=== PATIENT | female | born 1965 | race Caucasian/White ===

== ENCOUNTER 2020-07-14 16:10 | Outpatient (REF) | payer MEDICARE, SELFPAY | END 2020-07-14 16:11 | disposition home or self-care (01) | LOC: HO.HAP 16:10 | PROVIDERS: PCP Hospitalist; Referring Provider Hospitalist; Visit Provider Hospitalist | DX: Z46.1 Encounter for fitting and adjustment of hearing aid (principal) | CPT/HCPCS: V5266 ==

== ENCOUNTER 2020-07-20 15:26 | Outpatient (REF) | payer MEDICARE, SELFPAY | END 2020-07-20 15:27 | disposition home or self-care (01) | LOC: HO.HAP 15:26 | PROVIDERS: PCP Hospitalist; Referring Provider Hospitalist; Visit Provider Hospitalist | DX: Z46.1 Encounter for fitting and adjustment of hearing aid (principal); H90.3 Sensorineural hearing loss, bilateral | CPT/HCPCS: 92592; 99499 ==

== ENCOUNTER 2020-08-03 14:33 | Outpatient (REF) | payer MEDICARE, SELFPAY ==
--- NOTE | 2020-08-03 14:39 | MM_ITS ---
EXAMINATION: MM SCREENING DIGITAL BREAST TOMOSYNTHESIS, BILATERAL CLINICAL INFORMATION: Screening. Asymptomatic. Status post reduction mammoplasty 04/23/2019. The lifetime risk of breast cancer based on the Tyrer-Cuzick Model is 11%. COMPARISON: Mammography: 07/29/2019, 07/23/2018, 07/11/2017 TECHNIQUE: Digital breast tomosynthesis is performed in both the craniocaudal and mediolateral oblique views along with computer-aided detection (CAD). Synthesized 2D images are generated from the tomosynthesis. FINDINGS: There are scattered areas of fibroglandular density (ACR BI-RADS breast composition Category b). There is minor scarring consistent with the reduction mammoplasty again seen. Again, there is some smooth nodularity bilateral posterior 6:00 breasts along the scars. There is no significant mass or architectural abnormality or abnormal calcifications. No significant changes. The axilla are unremarkable. MM/MM tomosynthesis screening BI IMPRESSION: No significant changes from prior postoperative exam. ASSESSMENT: BI-RADS 2: Benign RECOMMENDATION: Routine annual mammography screening. This patient's information was entered into a reminder system with a target due date for their next mammogram.
== END 2020-08-03 14:34 | disposition home or self-care (01) ==
LOC: HO.MAMMO 14:33
PROVIDERS: Visit Provider Hospitalist
DX: Z12.31 Encounter for screening mammogram for malignant neoplasm of breast (principal)
CPT/HCPCS: 77063; 77067

== ENCOUNTER 2020-08-18 14:03 | Outpatient (REF) | payer MEDICARE, SELFPAY | END 2020-08-18 14:04 | disposition home or self-care (01) | LOC: HO.HAP 14:03 | PROVIDERS: Visit Provider Hospitalist | DX: Z13.89 Encounter for screening for other disorder (principal) ==

== ENCOUNTER 2020-08-27 16:45 | Outpatient (REF) | payer MEDICARE, SELFPAY | END 2020-08-27 16:46 | disposition home or self-care (01) | LOC: HO.HAP 16:45 | PROVIDERS: Visit Provider Hospitalist | DX: Z13.89 Encounter for screening for other disorder (principal) ==

== ENCOUNTER 2021-07-03 14:26 | Inpatient (IN) | payer MEDICARE, SELFPAY ==
--- NOTE | ~2021-07-03 | XR_ITS ---
EXAMINATION: XR KNEE, LEFT CLINICAL INFORMATION: Left knee pain COMPARISON: None TECHNIQUE: Four views of the left knee. FINDINGS: There is a soft tissue ossification along the lateral femoral condyle from old injury. No fracture or joint effusion. Alignment is anatomic. Joint spaces are well maintained. No abnormal soft tissue calcification. XR/XR knee LT 2V IMPRESSION: No acute fracture or dislocation. Soft tissue calcification along the lateral femoral condyle likely old injury.
--- NOTE | ~2021-07-03 | FL_ITS ---
EXAMINATION: XR FLUOROSCOPY WITH IMAGES CLINICAL INFORMATION: Left ankle fracture COMPARISON: Previous x-ray 07/03/2021 TECHNIQUE: Fluoroscopy performed by Dr. Harley Villanueva. Fluoroscopy time: 0.2 minutes DAP: 0.016 mgy/sq m Images: 4 FINDINGS: Images demonstrate 2 screws transfixing the medial malleolar fracture, a plate and screws transfixing the fibular shaft fracture and stabilization hardware across the distal tibia and fibula through the interosseous membrane. There is improved anatomic alignment. FL/FL guidance in OR IMPRESSION: Fluoroscopic guidance for ORIF of left ankle fracture.
--- NOTE | ~2021-07-03 | XR_ITS ---
EXAMINATION: XR ANKLE, LEFT CLINICAL INFORMATION: Left ankle injury. Pain and swelling in the left ankle. COMPARISON: None TECHNIQUE: AP, lateral, and mortise views of the left ankle. FINDINGS: There is intra-articular fracture through the distal left fibular metaphysis with mild lateral displacement of the distal fragment. There is a transverse displaced fracture through the medial malleolus. There is partial medial subluxation of the tibia in relation to the talar dome with widened medial tibiotalar space. Significant soft tissue swelling is noted over the ankle. No evidence of soft tissue air. Inferior and posterior calcaneal spurs. XR/XR ankle LT min 3V IMPRESSION: Displaced left bimalleolar fractures with ankle mortise instability and deformity.
[2021-07-03 14:40] VITALS: BP 158/87; PULSE 82; PULSE 88; RESP 16; TEMP 36.8; O2SAT 96; O2SAT 99; BMI 38.6
--- NOTE | 2021-07-03 14:57 | ED.LOWEXIN ---
HPI - Extremity Injury (Lower) General Chief Complaint: Extremity Injury, Lower Stated Complaint: FALL W/ANKLE INJURY/PAIN Time Seen by Provider: 07/03/21 14:57 History of Present Illness HPI Narrative: Patient complains of left ankle pain and swelling after she twisted it and fell while entering house and tripping on a carpet, there is no other injury no neck pain no headache no back pain, she did not hit her head Related Data Allergies Allergy/AdvReac Type Severity Reaction Status Date / Time amoxicillin [From AUGMENTIN] Allergy Unknown UNKNOWN Unverified 04/30/20 16:28 azithromycin [AZITHROMYCIN] Allergy Unknown UNKNOWN Unverified 04/30/20 16:28 clarithromycin [From BIAXIN] Allergy Unknown UNKNOWN Unverified 04/30/20 16:28 clavulanic acid Allergy Unknown UNKNOWN Unverified 04/30/20 16:28 [From AUGMENTIN] doxycycline [DOXYCYCLINE] Allergy Unknown UNKNOWN Unverified 04/30/20 16:28 lidocaine [LIDOCAINE] Allergy Unknown UNKNOWN Unverified 04/30/20 16:28 sulfamethoxazole Allergy Unknown UNKNOWN Unverified 04/30/20 16:28 [From BACTRIM] trimethoprim [From BACTRIM] Allergy Unknown UNKNOWN Unverified 04/30/20 16:28 Review of Systems Review of Systems: Positive for left ankle pain Negatives are no fever no chills no dizziness no weakness no fainting no feeling faint no headache no neck pain no numbness weakness or tingling no chest pain no shortness of breath no abdominal pain no other extremity pain or injury Yes all other systems are reviewed and are negative PMFSH Past Medical History Source: nursing notes reviewed Medical History (Updated 07/03/21 @ 17:52 by RITCHIE Artis) Diabetes FH: cholecystectomy GERD (gastroesophageal reflux disease) HTN (hypertension) Polymyositis Surgical History History of carpal tunnel surgery History of cholecystectomy History of gastric surgery Status post breast reduction Social History Social History Advance Directives: No Advance Directives Information Provided: Yes Patient : No Physical Exam Vital Signs: Vital Signs: Last Vital Signs Temp 98.2 F 07/03/21 14:40 Pulse 88 07/03/21 14:40 Resp 16 07/03/21 14:40 BP 158/87 H 07/03/21 14:40 Pulse Ox 99 07/03/21 14:40 Body Mass Index 38.6 General appearance no acute distress Head is normocephalic atraumatic Neck is supple nontender Respiratory no acute distress Chest wall nontender Lungs clear to auscultation bilateral Abdomen soft nontender Extremities there is full range of motion in the right lower extremity and both upper extremities The left lower leg has tenderness and swelling both medial and lateral of the left ankle, there is ecchymosis but the skin is intact, motor and sensation are intact distal, the knee has full range of motion without any tenderness and the distal foot is nontender Course Course Course Narrative: Patient has a history polymyositis which leaves her with week arms and weak legs and normally ambulates with a cane, she is not able to use crutches to be nonweightbearing and her home will not accommodate a wheelchair as their steps and tight hallways X-ray did show bimalleolar fracture with widening of the mortise Case was discussed with orthopedic physician assistant tucker who advised that surgery cannot take place till Monday Case was discussed with hospitalist and patient who could not function with nonweightbearing and has stairs at home so could not use a wheelchair was admitted pending Orthopedic surgery Discharge Plan Discharge Clinical Impression: Ankle fracture Patient Disposition: Admitted As Inpatient
--- NOTE | 2021-07-03 17:32 | P.HPHOSP_ITS ---
History of Present Illness Date of Service: 07/03/21 <RITCHIE Bañuelos - Last Filed: 07/03/21 17:51> Attending physician on admission: Bakari Chaves <RITCHIE Bañuelos - Last Filed: 07/03/21 17:51> Chief Complaint: Leg pain <RITCHIE Bañuelos - Last Filed: 07/03/21 17:51> This is a 55-year-old female with history of polymyositis who presents to the emergency department with pain in her left leg. She states that she tripped over her her door mat and fell. She denies any dizziness prior to her fall. She denies loss of consciousness and she did not her head. She was brought into the emergency department by ambulance and workup in the emergency department revealed a displaced left by malleolar fracture with ankle mortise instability and deformity. Due to her polymyositis she has difficulty ambulating at baseline and usually uses a cane. With unstable fracture she is unable to bear weight on her left leg and therefore is unable to use her cane. Due to inability to ambulate and pain, she will be admitted to the medical service with plan for orthopedic consultation. <RITCHIE Bañuelos - Last Filed: 07/03/21 17:51> Review of Systems Review of Systems: Yes all other systems are reviewed and are negative <RITCHIE Bañuelos - Last Filed: 07/03/21 17:51> Constitutional: Constitutional: Denies chills and Denies fever(s) <RITCHIE Bañuelos - Last Filed: 07/03/21 17:51> Cardiovascular: Cardiovascular: Denies chest pain <RITCHIE Bañuelos Last Filed: 07/03/21 17:51> Respiratory: Respiratory: Denies cough <RITCHIE Bañuelos Last Filed: 07/03/21 17:51> Gastrointestinal: Gastrointestinal: Denies abdominal pain <RITCHIE Castro - Last Filed: 07/03/21 17:51> [facility] Medical History: Medical History (Updated 07/03/21 @ 17:52 by RITCHIE Artis) Diabetes FH: cholecystectomy GERD (gastroesophageal reflux disease) HTN (hypertension) Polymyositis <RITCHIE Bañuelos - Last Filed: 07/03/21 17:51> Functional capacity: uses cane/walker <RITCHIE Bañuelos - Last Filed: 07/03/21 17:51> Surgical History: Surgical History History of carpal tunnel surgery History of cholecystectomy History of gastric surgery Status post breast reduction <RITCHIE Bañuelos - Last Filed: 07/03/21 17:51> Social History: Social History Household Members: Significant Other Housing: Apartment Do you presently have visiting nurse or other home services: No Patient Tobacco Use Status: Never used Tobacco Smoked in Last 30 Days: No e-Cigarette/Vaping Use: Never Used Patient Given Instructions on How to Stop Smoking: No Second Hand Smoke Exposure: No Use of substances other than those prescribed or required for medical reasons: No Currently Displaying Signs/Symptoms of Drug Intoxication Withdrawal: No Have you been hit, kicked, punched, or otherwise hurt by someone within the past year? If so, by whom?: No Do you feel safe in your current relationship?: Yes Is there a partner from a previous relationship who is making you feel unsafe now?: No Are you made to feel afraid or neglected: No Advance Directives: No Advance Directives Information Provided: Yes Advance Directives on File: Yes Do you have thoughts of harming others: None Do you have a plan to hurt others: No Plan Recently lost weight without trying: No Eating poorly because of decreased appetite: No Nutrition Risks: No Nutritional Risk Patient : No : No Poor oral hygiene: No <RITCHIE Bañuelos - Last Filed: 07/03/21 17:51> Meds Allergies/Adverse reactions: Allergies Allergy/AdvReac Type Severity Reaction Status Date / Time amoxicillin [From AUGMENTIN] Allergy Unknown UNKNOWN Unverified 04/30/20 16:28 azithromycin [AZITHROMYCIN] Allergy Unknown UNKNOWN Unverified 04/30/20 16:28 clarithromycin [From BIAXIN] Allergy Unknown UNKNOWN Unverified 04/30/20 16:28 clavulanic acid Allergy Unknown UNKNOWN Unverified 04/30/20 16:28 [From AUGMENTIN] doxycycline [DOXYCYCLINE] Allergy Unknown UNKNOWN Unverified 04/30/20 16:28 lidocaine [LIDOCAINE] Allergy Unknown UNKNOWN Unverified 04/30/20 16:28 sulfamethoxazole Allergy Unknown UNKNOWN Unverified 04/30/20 16:28 [From BACTRIM] trimethoprim [From BACTRIM] Allergy Unknown UNKNOWN Unverified 04/30/20 16:28 <RITCHIE Bañuelos - Last Filed: 07/03/21 17:51> Active Medications: Current Medications Pharmacy Consult (Consult Rx Perform Med Rec) 1 each MISCELLANE ONCE PRN PRN Reason: Consult order <RITCHIE Bañuelos - Last Filed: 07/03/21 17:51> Home medications: Home Medications Medication Instructions Recorded Confirmed Last Taken Type calcium citrate 950 mg PO DAILY 07/03/21 07/03/21 07/03/21 08:00 History glipizide 5 mg tablet 1 tab PO DAILY 07/03/21 07/03/21 07/02/21 21:00 History liraglutide 0.6 mg/0.1 mL (18 mg/3 mg SUBCUT 07/03/21 07/03/21 08:00 History mL) subcutaneous pen injector (PlayEarthtoza 3-Vinicius) losartan 50 mg tablet 1 tab PO DAILY 07/03/21 07/03/21 07/02/21 21:00 History magnesium oxide 500 mg tablet 1 tab PO DAILY 07/03/21 07/03/21 07/03/21 08:00 History multivitamin 07/03/21 07/03/21 History omeprazole 40 mg capsule,delayed 1 cap PO DAILY 07/03/21 07/03/21 07/03/21 08:00 History release <RITCHIE Bañuelos - Last Filed: 07/03/21 17:51> Physical Exam Vital Signs and Narrative: Vital Signs: Last Vital Signs Temp 98.2 F 07/03/21 14:40 Pulse 88 07/03/21 14:40 Resp 16 07/03/21 14:40 BP 158/87 H 07/03/21 14:40 Pulse Ox 99 07/03/21 14:40 Body Mass Index 38.6 <RITCHIE Bañuelos - Last Filed: 07/03/21 17:51> Const: General: healthy appearing, alert and awake <RITCHIE Bañuelos - Last Filed: 07/03/21 17:51> Nutritional Appearance: overweight <RITCHIE Bañuelos - Last Filed: 07/03/21 17:51> Orientation/consciousness: patient oriented x3 <RITCHIE Bañuelos - Last Filed: 07/03/21 17:51> HENMT: Head: Yes normocephalic and Yes atraumatic <RITCHIE Bañuelos - Last Filed: 07/03/21 17:51> Eyes: Sclerae: sclerae normal <RITCHIE Bañuelos - Last Filed: 07/03/21 17:51> Resp: Effort & Inspection: normal respiratory effort and no respiratory distress <RITCHIE Bañuelos - Last Filed: 07/03/21 17:51> Cardio: Rate: regular rate <RITCHIE Bañuelos - Last Filed: 07/03/21 17:51> Rhythm: regular rhythm <RITCHIE Bañuelos - Last Filed: 07/03/21 17:51> GI: Palpation (GI): Soft to palpation and nontender <RITCHIE Bañuelos - Last Filed: 07/03/21 17:51> Neuro: General: patient oriented x3 <RITCHIE Bañuelos - Last Filed: 07/03/21 17:51> Cranial nerves: Yes CN's II-XII intact bilaterally and Yes Bilaterally intact EOM present <RITCHIE Bañuelos - Last Filed: 07/03/21 17:51> Extrem: Other: left leg being placed in splint <RITCHIE Bañuelos - Last Filed: 07/03/21 17:51> Results Imaging Radiologist's Impressions: Impressions Ankle X-Ray 07/03/21 15:01 IMPRESSION: Displaced left bimalleolar fractures with ankle mortise instability and deformity. <RITCHIE Bañuelos Last Filed: 07/03/21 17:51> Assessment and Plan (1) Closed left ankle fracture: Status: Acute <RITCHIE Bañuelos Last Filed: 07/03/21 17:51> This is a 55-year-old female with polymyositis, diabetes, hypertension who presents to the emergency department after mechanical fall found to have left bimalleolar fracture admitted for intractable pain and inability to ambulate Left bimalleolar fracture management per orthopedic team pain management Nonweightbearing on left leg Diabetes hold victoza, glipizide -SSI, POCs, ADA diet HTN continue losartan when med rec has been completed follow blood pressure closely gerd continue omeprazole dvt ppx - lovenox code status - full code <RITCHIE Bañuelos - Last Filed: 07/03/21 17:51> Quality Stroke Does the patient have a stroke diagnosis?: No <RITCHIE Bañuelos - Last Filed: 07/03/21 17:51> VTE Prior VTE?: No <RITCHIE Bañuelos - Last Filed: 07/03/21 17:51> VTE Risk Level:: Medical - moderate - high <RITCHIE Bañuelos - Last Filed: 07/03/21 17:51> VTE Device Contraindication: Treatment Not Indicated <RITCHIE Bañuelos - Last Filed: 07/03/21 17:51> VTE Drug Contraindication: N/A - Med Ordered <RITCHIE Bañuelos - Last Filed: 07/03/21 17:51>
[2021-07-03] MEDS: Enoxaparin Sodium 40 MG/0.4 ML SYRINGE SUBCUT (19:32)
[2021-07-03] MEDS: Acetaminophen 325 MG TABLET 650 MG PO (19:43)
--- NOTE | 2021-07-03 20:09 | PC.NURSE ---
PT REFUSING IV STATES THERE IS NO MEDICAL REASON FOR ME TO GET THE IV AT THIS TIME. PT STATES I HAVE TERRIBLE VEINS AND DONT WANT AND IV NOW.
[2021-07-03 20:12] LABS: COVID-19 Test Negative (Negative); IDNOW Serial# 9DD0AD1C
[2021-07-03 23:05] LABS: Glucose, Whole Blood 196 mg/dL (60-115)
[2021-07-03] MEDS: traMADoL HCL 50 MG TABLET PO (23:43)
[2021-07-04] VITALS (7 sets, daily range): BP systolic 138–158; BP diastolic 64–85; PULSE 68–89; RESP 18–20; TEMP 37–37.4; O2SAT 96–98; BMI 39.2
[2021-07-04] MEDS: oxyCODONE HCl Immed Release 5 MG TABLET PO (04:02)
[2021-07-04 07:29] LABS: Glucose, Whole Blood 123 mg/dL (60-115)
[2021-07-04] MEDS: traMADoL HCL 50 MG TABLET PO ×2 (09:04→16:58)
[2021-07-04] MEDS: glipiZIDE 5 MG TABLET PO (09:04)
--- NOTE | 2021-07-04 09:58 | HO.PM.IMPN ---
Subjective Subjective Date of Service: 07/04/21 Interval History: Being followed for left ankle fracture with intractable pain complaining of stabbing pain left ankle unable to sleep well last night, refusing diabetic diet and insulin coverage. Review of Systems General no headache no dizziness no fever chills. CVS no chest pain, no palpitation. Respiratory no cough ,no sob Gastrointestinal no nausea, no vomiting, no abdominal pain Review of Systems: Yes all other systems are reviewed and are negative Physical Exam Vital Signs: Vital Signs: Last Vital Signs Temp 98.8 F 07/04/21 07:23 Pulse 84 07/04/21 07:23 Resp 20 07/04/21 07:23 BP 150/85 H 07/04/21 07:23 Pulse Ox 96 07/04/21 07:23 Body Mass Index 39.2 General awake alert x3in no acute distress. Neck supple, no JVD. CVS regular rate rhythm, Respiratory lungs clear to auscultation, no respiratory distress, no wheeze, no rhonchi. Gastrointestinal abdomen soft, nontender, bowel sounds audible Extremities right leg no edema. Left foot in cast Neuro nonfocal Skin no rash Objective Data Active Medications Acetaminophen (Acetaminophen 325 Mg Tablet) 650 mg PO Q6H PRN PRN Reason: Pain, Mild (Pain Scale 1-3) Last Admin: 07/03/21 19:43 Dose: 650 mg Documented by: ARASH Enoxaparin Sodium (Enoxaparin Sodium 40 Mg/0.4 Ml Syringe) 40 mg SUBCUT Q24H [facility] Last Admin: 07/03/21 19:32 Dose: 40 mg Documented by: ARASH Glipizide (Glipizide 5 Mg Tablet) 5 mg PO DAILY [facility] Last Admin: 07/04/21 09:04 Dose: 5 mg Documented by: RADHA Losartan Potassium (Losartan Potassium 50 Mg Tablet) 50 mg PO DAILY [facility]; Protocol Morphine Sulfate (Morphine Sulfate 4 Mg/Ml Cartridge) 4 mg IVPUSH Q4H PRN; Protocol PRN Reason: Pain, Severe (Pain Scale 7-10) Omeprazole (Omeprazole 40 Mg Capsule.Dr) 40 mg PO DAILY@0630 [facility] Last Admin: 07/04/21 06:26 Dose: Not Given Documented by: BRANDY Non-Admin Reason: Patient Asleep Ondansetron HCl (Ondansetron Hcl 4 Mg/2 Ml Vial) 4 mg IVPUSH Q8H PRN PRN Reason: Nausea and Vomiting Oxycodone HCl (Oxycodone Hcl Immed Release 5 Mg Tablet) 5 mg PO Q6H PRN PRN Reason: Pain, Severe (Pain Scale 7-10) Last Admin: 07/04/21 04:02 Dose: 5 mg Documented by: BRANDY Pharmacy Consult (Consult Rx Perform Med Rec) 1 each MISCELLANE ONCE PRN PRN Reason: Consult order Sodium Chloride (0.9 % Sodium Chloride Flush 3 Ml Syringe) 3 ml IVFLUSH QSHIFT [facility] Last Admin: 07/04/21 09:08 Dose: Not Given Documented by: RADHA Non-Admin Reason: No Access Tramadol HCl (Tramadol Hcl 50 Mg Tablet) 50 mg PO Q6H PRN PRN Reason: Pain, Severe (Pain Scale 7-10) Last Admin: 07/04/21 09:04 Dose: 50 mg Documented by: RADHA Labs Labs: Laboratory Results - last 24 hr 07/03/21 07/03/21 07/04/21 19:49 22:56 07:22 POC Glucose 196 H 123 H COVID-19 ([place]) Negative COVID-19 Clin Com See Note Assessment and Plan (1) Ankle fracture: Status: Acute (2) Intractable pain: Status: Acute Assessment and Plan: 55-year-old female with polymyositis, diabetes, hypertension who presents to the emergency department after mechanical fall found to have left bimalleolar fracture admitted for intractable pain and inability to ambulate Intractable left ankle pain due to Left bimalleolar fracture management per orthopedic team Continue pain management with oxycodone and Ultram, prn iv morphine Nonweightbearing on left leg Diabetes type 2 Stable blood sugars hold victoza Continue glipizide, patient refusing insulin and diabetic diet Follow POCs HTN continue losartan 50 mg daily follow blood pressure closely gerd continue omeprazole Obesity , recommended low-calorie diet exercise and weight loss since contributing to diabetes and hypertension. dvt ppx - lovenox code status - full code Quality Stroke Does the patient have a stroke diagnosis?: No VTE Prior VTE?: No VTE Risk Level:: Medical - moderate - high VTE Device Contraindication: Treatment Not Indicated VTE Drug Contraindication: N/A - Med Ordered
--- NOTE | 2021-07-04 10:35 | MHC.CM.PN ---
CM MET WITH PT WHO REPORTS SHE LIVES WITH HER S/O. SHE REPORTS SHE IS INDEPENDENT WITH SELF CARE AND HER DAUGHTER WORKS HER [employer]RAW[employer] TO PROVIDE HOUSEKEEPING SERVICES. PT REPORTS SHE USUALLY USES A TREKKING POLE TO AMBULATE BUT HAD BEEN FEELING STRONGER SO WAS NOT USING IT AT THE TIME OF THE FALL. PT REPORTS SHE HAS HAD ALL THREE OF THE COVID-19 VACCINES (MODERNA). SHE RECEIVED THE BOOSTER SHOT THIS PAST MONDAY. PT COMPLETED A NEW HCP TODAY NAMING HER DAUGHTER, LISHA, HER AGENT. [facility] DELIVERED PT FEELS SHE WILL LIKELY NEED REHAB. SHE IS REQUESTING REFERRALS TO [facility] AND [facility]. REFERRALS PLACED.
[2021-07-04 11:03] LABS: Glucose, Whole Blood 164 mg/dL (60-115)
--- NOTE | 2021-07-04 11:11 | PHA.MEDREC ---
Pharmacy Consult ? Medication Reconciliation Pharmacy has completed the medication reconciliation. PT TAKES ALL HER MEDS AT BEDTIME EXCEPT VICTOZA AND GLIPIZIDE IN AM DOES NOT WANT MAGNESIUM CITRATE O THE LIST IF WE CAN'T GIVE HER THE CITRATE. PT'S DAUGHTER TO BRING IN RXS FOR VICTOZA AND CALCIUM CITRATE
--- NOTE | 2021-07-04 11:56 | P.CONOP_ITS ---
History of Present Illness HPI Consult date: 07/04/21 Chief complaint: Intractable pain/left ankle fracture Narrative: 55 yo female who presented to the ED s/p fall . She has PMH significant for polymyositis, she uses a cane at baseline for ambulation . She is NIDDM. She states she when she walks she feels as though her legs are too heavy to lift, as she was walking she had difficulty lifting her leg, which got caught on a mat and she tripped and fell. She twisted the ankle and had di fficulty with weight bearing and ambulation which prompted her to be seen in the ED. On exam she had a notable deformity and xrays showed a bimalleolar ankle fracture with disruption of the mortise. She was admitted to the medical service and orthopedics was consulted for surgical planning. Review of Systems Review of Systems: Yes all other systems are reviewed and are negative [facility] Past Medical History Medical History (Updated 07/04/21 @ 10:02 by Bakari Chaves MD) Diabetes FH: cholecystectomy GERD (gastroesophageal reflux disease) HTN (hypertension) Polymyositis Functional capacity: uses cane/walker Surgical History Surgical History History of carpal tunnel surgery History of cholecystectomy History of gastric surgery Status post breast reduction Social History Social History Household Members: Significant Other Housing: Apartment Do you presently have visiting nurse or other home services: No Patient Tobacco Use Status: Never used Tobacco Smoked in Last 30 Days: No e-Cigarette/Vaping Use: Never Used Patient Given Instructions on How to Stop Smoking: No Second Hand Smoke Exposure: No Use of substances other than those prescribed or required for medical reasons: No Currently Displaying Signs/Symptoms of Drug Intoxication Withdrawal: No Have you been hit, kicked, punched, or otherwise hurt by someone within the past year? If so, by whom?: No Do you feel safe in your current relationship?: Yes Is there a partner from a previous relationship who is making you feel unsafe now?: No Are you made to feel afraid or neglected: No Advance Directives: No Advance Directives Information Provided: Yes Advance Directives on File: Yes Do you have thoughts of harming others: None Do you have a plan to hurt others: No Plan Recently lost weight without trying: No Eating poorly because of decreased appetite: No Nutrition Risks: No Nutritional Risk Patient : No : No Poor oral hygiene: No service: No Current occupational status: unemployed Meds Allergies Allergy/AdvReac Type Severity Reaction Status Date / Time amoxicillin [From AUGMENTIN] Allergy Unknown UNKNOWN Unverified 04/30/20 16:28 azithromycin [AZITHROMYCIN] Allergy Unknown UNKNOWN Unverified 04/30/20 16:28 clarithromycin [From BIAXIN] Allergy Unknown UNKNOWN Unverified 04/30/20 16:28 clavulanic acid Allergy Unknown UNKNOWN Unverified 04/30/20 16:28 [From AUGMENTIN] doxycycline [DOXYCYCLINE] Allergy Unknown UNKNOWN Unverified 04/30/20 16:28 lidocaine [LIDOCAINE] Allergy Unknown UNKNOWN Unverified 04/30/20 16:28 sulfamethoxazole Allergy Unknown UNKNOWN Unverified 04/30/20 16:28 [From BACTRIM] trimethoprim [From BACTRIM] Allergy Unknown UNKNOWN Unverified 04/30/20 16:28 Active Medications: Current Medications Acetaminophen (Acetaminophen 325 Mg Tablet) 650 mg PO Q6H PRN PRN Reason: Pain, Mild (Pain Scale 1-3) Last Admin: 07/03/21 19:43 Dose: 650 mg Documented by: Enoxaparin Sodium (Enoxaparin Sodium 40 Mg/0.4 Ml Syringe) 40 mg SUBCUT Q24H [facility] Last Admin: 07/03/21 19:32 Dose: 40 mg Documented by: Glipizide (Glipizide 5 Mg Tablet) 5 mg PO DAILY [facility] Last Admin: 07/04/21 09:04 Dose: 5 mg Documented by: Losartan Potassium (Losartan Potassium 50 Mg Tablet) 50 mg PO BEDTIME [facility]; Protocol Magnesium Oxide (Magnesium Oxide 400 Mg Tablet) 1 mg PO DAILY [facility] Morphine Sulfate (Morphine Sulfate 4 Mg/Ml Cartridge) 4 mg IVPUSH Q4H PRN; Protocol PRN Reason: Pain, Severe (Pain Scale 7-10) Multivitamins/Vitamin C (Multivitamin Tablet) 1 tab PO DAILY [facility] Omeprazole (Omeprazole 40 Mg Capsule.Dr) 40 mg PO BEDTIME [facility] Ondansetron HCl (Ondansetron Hcl 4 Mg/2 Ml Vial) 4 mg IVPUSH Q8H PRN PRN Reason: Nausea and Vomiting Oxycodone HCl (Oxycodone Hcl Immed Release 5 Mg Tablet) 5 mg PO Q6H PRN PRN Reason: Pain, Severe (Pain Scale 7-10) Last Admin: 07/04/21 04:02 Dose: 5 mg Documented by: Pharmacy Consult (Consult Rx Perform Med Rec) 1 each MISCELLANE ONCE PRN PRN Reason: Consult order Sodium Chloride (0.9 % Sodium Chloride Flush 3 Ml Syringe) 3 ml IVFLUSH QSHIFT [facility] Last Admin: 07/04/21 09:08 Dose: Not Given Documented by: Tramadol HCl (Tramadol Hcl 50 Mg Tablet) 50 mg PO Q6H PRN PRN Reason: Pain, Severe (Pain Scale 7-10) Last Admin: 07/04/21 09:04 Dose: 50 mg Documented by: Home Medications Medication Instructions Recorded Confirmed Last Taken Type glipizide 5 mg tablet 1 tab PO DAILY 07/03/21 07/03/21 07/02/21 21:00 History liraglutide 0.6 mg/0.1 mL (18 mg/3 1.8 mg SUBCUT DAILY 07/03/21 07/04/21 07/03/21 08:00 History mL) subcutaneous pen injector (Victoza 3-Vinicius) losartan 50 mg tablet 1 tab PO BEDTIME 07/03/21 07/04/21 07/02/21 21:00 History omeprazole 40 mg capsule,delayed 1 cap PO BEDTIME 07/03/21 07/04/21 07/03/21 08:00 History release calcium citrate 200 mg (950 mg) 2 tab PO BEDTIME 07/04/21 07/04/21 Unknown History tablet multivitamin 1 tab PO BEDTIME 07/04/21 07/04/21 Unknown History Physical Exam Vital Signs: Vital Signs: Last Vital Signs Temp 98.8 F 07/04/21 07:23 Pulse 84 07/04/21 11:13 Resp 20 07/04/21 07:23 BP 150/85 H 07/04/21 11:13 Pulse Ox 96 07/04/21 07:23 Body Mass Index 39.2 Const: General: cooperative, healthy appearing, comfortable and no acute distress Extrem: Other: Left ankle Diffuse swelling over the ankle with mild bruising. Mild tenderness over the medial and lateral malleolus. Pulses and sensation intact. Calf supple non tender. Results Labs Labs: Abnormal lab results 07/03/21 07/04/21 07/04/21 Range/Units 22:56 07:22 10:55 POC Glucose 196 H 123 H 164 H (60-115) mg/dL All other labs normal. Assessment and Plan (1) Closed left ankle fracture: Status: Acute I discussed the case with Dr Villanueva and explained the extent of the injury to the patient and options available which include surgical intervention. I explained the procedure in detail along with the length of recovery and rehab course. I explained the risk, benefits and alternatives. Risk including, but not limited to infection, blood clots, bleeding, non union or malunion and nerve/tissue damage to surrounding areas. I answered all their questions and with their understanding they have consented to move forward with Operative Fixation of the left ankle. Due to the amount of swelling and the risk for skin breakdown, we do need to wait until the swelling subsides over the next 24-48 hours. We will continue to re-eval for skin integrity. Procedures Date of Service Date of Service: 07/04/21
--- NOTE | 2021-07-04 11:56 | PM.EVENT ---
Event Note Date of Service: 07/04/21 Event Note: 55 yo female with left ankle bima fracture -pmh of polymyositis, NIDDM -continue to observe for swelling control and skin integrty -plan for OR monday
[2021-07-04 16:33] LABS: Glucose, Whole Blood 186 mg/dL (60-115)
[2021-07-04 20:28] LABS: Glucose, Whole Blood 233 mg/dL (60-115)
[2021-07-04] MEDS: Enoxaparin Sodium 40 MG/0.4 ML SYRINGE SUBCUT (21:22)
[2021-07-04] MEDS: Losartan Potassium 50 MG TABLET PO (21:23)
[2021-07-04] MEDS: Omeprazole 40 MG CAPSULE.DR PO (21:25)
[2021-07-05] MEDS: oxyCODONE HCl Immed Release 5 MG TABLET PO ×2 (00:16→23:59)
[2021-07-05 07:15] LABS: Glucose, Whole Blood 149 mg/dL (60-115)
[2021-07-05 07:41] VITALS: BP 127/75; PULSE 80; RESP 18; TEMP 36.4; O2SAT 95
[2021-07-05] MEDS: Multivitamin TABLET 1 TAB PO (08:39)
[2021-07-05] MEDS: glipiZIDE 5 MG TABLET PO (08:43)
[2021-07-05] MEDS: traMADoL HCL 50 MG TABLET PO ×2 (08:45→18:02)
[2021-07-05 08:46] LABS: Hematocrit 36.5 % (37.0-47.0); Mean Corpuscular HGB Conc 32.9 g/dl (31.0-35.0); Mean Corpuscular Hemoglobin 30.3 pg (27.0-33.0); Mean Corpuscular Volume 92.2 fL (80.0-98.0); Mean Platelet Volume 9.9 fL (9.4-12.3); Platelet Count 209 X10*3/uL (160-400); Red Blood Count 3.96 X10*6/uL (4.20-5.50); Red Cell Distribution Width 13.7 % (11.0-16.0); White Blood Count 5.1 X10*3/uL (4.8-10.8)
[2021-07-05 08:59] LABS: Anion Gap 13 (12-20); Blood Urea Nitrogen 13 mg/dL (9-16); Calcium 9.1 mg/dL (8.4-10.2); Carbon Dioxide 27 mmol/L (22-29); Chloride 105 mmol/L (96-108); Creatinine Clr Calc Pharmacy 142.7; Estimated Glomerular Filt Rate > 60; Glucose Random 179 mg/dL (60-115); Potassium 3.8 mmol/L (3.3-5.1); Sodium 141 mmol/L (135-145)
[2021-07-05 11:15] LABS: Glucose, Whole Blood 145 mg/dL (60-115)
--- NOTE | 2021-07-05 11:39 | HO.PM.IMPN ---
Subjective Subjective Date of Service: 07/05/21 Interval History: seen and examined this AM with her RNs bedside pt reports pain in foot but otherwise no complaints she has not allowed labs to be drawn, but finally did this AM she still refuses IV and states that she will have it inserted during the time of surgery Review of Systems negative except HPI Physical Exam Vital Signs: Vital Signs: Last Vital Signs Temp 97.5 F 07/05/21 07:41 Pulse 80 07/05/21 07:41 Resp 18 07/05/21 07:41 BP 127/75 07/05/21 07:41 Pulse Ox 95 07/05/21 07:41 Body Mass Index 39.2 Const: Other: ? General awake alert x3in no acute distress.? Neck? supple, no JVD. CVS? regular rate rhythm, Respiratory lungs clear to auscultation, no respiratory distress, no wheeze, no rhonchi. Gastrointestinal abdomen soft, nontender, bowel sounds audible Extremities right leg no edema.? Left foot in cast Neuro nonfocal Skin no rash Objective Data Active Medications Acetaminophen (Acetaminophen 325 Mg Tablet) 650 mg PO Q6H PRN PRN Reason: Pain, Mild (Pain Scale 1-3) Last Admin: 07/03/21 19:43 Dose: 650 mg Documented by: ARASH Enoxaparin Sodium (Enoxaparin Sodium 40 Mg/0.4 Ml Syringe) 40 mg SUBCUT Q24H [facility] Last Admin: 07/04/21 21:22 Dose: 40 mg Documented by: TALIA Glipizide (Glipizide 5 Mg Tablet) 5 mg PO DAILY [facility] Last Admin: 07/05/21 08:43 Dose: 5 mg Documented by: RADHA Losartan Potassium (Losartan Potassium 50 Mg Tablet) 50 mg PO BEDTIME [facility]; Protocol Last Admin: 07/04/21 21:23 Dose: 50 mg Documented by: TALIA Morphine Sulfate (Morphine Sulfate 4 Mg/Ml Cartridge) 4 mg IVPUSH Q4H PRN; Protocol PRN Reason: Pain, Severe (Pain Scale 7-10) Multivitamins/Vitamin C (Multivitamin Tablet) 1 tab PO DAILY [facility] Last Admin: 07/05/21 08:39 Dose: 1 tab Documented by: RADHA Non-Formulary Medication (Liraglutide [Victoza 3-Vinicius]) 1.8 mg SUBCUT DAILY [facility] Last Admin: 07/05/21 08:39 Dose: 1.8 mg Documented by: RADHA Non-Formulary Medication (Calcium Citrate) 2 tab PO BEDTIME [facility] Last Admin: 07/04/21 21:26 Dose: 2 tab Documented by: TALIA Omeprazole (Omeprazole 40 Mg Capsule.Dr) 40 mg PO BEDTIME [facility] Last Admin: 07/04/21 21:25 Dose: 40 mg Documented by: TALIA Ondansetron HCl (Ondansetron Hcl 4 Mg/2 Ml Vial) 4 mg IVPUSH Q8H PRN PRN Reason: Nausea and Vomiting Oxycodone HCl (Oxycodone Hcl Immed Release 5 Mg Tablet) 5 mg PO Q6H PRN PRN Reason: Pain, Severe (Pain Scale 7-10) Last Admin: 07/05/21 00:16 Dose: 5 mg Documented by: TALIA Pharmacy Consult (Consult Rx Perform Med Rec) 1 each MISCELLANE ONCE PRN PRN Reason: Consult order Sodium Chloride (0.9 % Sodium Chloride Flush 3 Ml Syringe) 3 ml IVFLUSH QSHIFT [facility] Last Admin: 07/05/21 08:49 Dose: Not Given Documented by: RADHA Non-Admin Reason: NPO Tramadol HCl (Tramadol Hcl 50 Mg Tablet) 50 mg PO Q6H PRN PRN Reason: Pain, Severe (Pain Scale 7-10) Last Admin: 07/05/21 08:45 Dose: 50 mg Documented by: RADHA Labs CBC & Chem 7: 07/05/21 08:36 07/05/21 08:36 Labs: Laboratory Results - last 24 hr 07/04/21 07/04/21 07/05/21 16:20 20:19 07:06 MCV MCH MCHC RDW Plt Count MPV Absolute Nucleated RBC Nucleated RBC % (auto) Anion Gap Estim Creat Clear Calc Estimated GFR POC Glucose 186 H 233 H 149 H Random Glucose Calcium 07/05/21 07/05/21 07/05/21 08:36 08:36 11:01 MCV 92.2 MCH 30.3 MCHC 32.9 RDW 13.7 Plt Count 209 MPV 9.9 Absolute Nucleated RBC 0.000 Nucleated RBC % (auto) 0.0 Anion Gap 13 Estim Creat Clear Calc 142.7 Estimated GFR > 60 POC Glucose 145 H Random Glucose 179 H Calcium 9.1 Assessment and Plan (1) Intractable pain: Status: Acute (2) Ankle fracture: Status: Acute Assessment and Plan: 55-year-old female with polymyositis, diabetes, hypertension who presents to the emergency department after mechanical fall found to have left bimalleolar fracture admitted for intractable pain and inability to ambulate Intractable left ankle pain due to Left bimalleolar fracture plan for operative repair tomorrow Continue pain management with oxycodone and Ultram, prn iv morphine Non-weight bearing on left leg Diabetes type 2 intermittently elevated POC -- pt refusing subcut. insulin POC, sliding scale check a1c HTN continue losartan 50 mg daily follow blood pressure closely gerd continue omeprazole Obesity recommended low-calorie diet exercise and weight loss since contributing to diabetes and hypertension Polymyositis chronic outpatient f/u with her doctors Full Code DVT pptx, Lovenox Dispo -- anticipate that she will need STR post surgery Quality Stroke Does the patient have a stroke diagnosis?: No VTE Prior VTE?: No VTE Risk Level:: Medical - moderate - high VTE Device Contraindication: Treatment Not Indicated VTE Drug Contraindication: N/A - Med Ordered
--- NOTE | 2021-07-05 11:59 | MHC.CM.PN ---
per rounds pt to have ankle surgery monday possible dc wed
[2021-07-05 12:11] LABS: Estimated Average Glucose 146 mg/dL; Hemoglobin A1c % 6.7 %
[2021-07-05 15:13] VITALS: BP 131/67; PULSE 81; RESP 20; TEMP 36.1; O2SAT 98
[2021-07-05 16:18] LABS: Glucose, Whole Blood 171 mg/dL (60-115)
[2021-07-05 20:17] LABS: Glucose, Whole Blood 194 mg/dL (60-115)
[2021-07-05] MEDS: Omeprazole 40 MG CAPSULE.DR PO (20:40)
[2021-07-05] MEDS: Enoxaparin Sodium 40 MG/0.4 ML SYRINGE SUBCUT (20:41)
[2021-07-05] MEDS: Losartan Potassium 50 MG TABLET PO (20:41)
[2021-07-05 23:10] VITALS: BP 176/90; PULSE 69; RESP 18; TEMP 36.9; O2SAT 98
[2021-07-05 23:36] VITALS: BP 149/64
[2021-07-06] VITALS (19 sets, daily range): BP systolic 109–166; BP diastolic 43–77; PULSE 63–97; RESP 14–18; TEMP 36.6–37.3; O2SAT 93–98
--- NOTE | 2021-07-06 06:25 | PC.NURSE ---
pt refusing iv until procedure, mds and [employer]PECT[employer] PREFLIGHT aware. will report to oncoming RN
[2021-07-06 07:17] LABS: Glucose, Whole Blood 116 mg/dL (60-115)
--- NOTE | 2021-07-06 08:45 | MHC.SHP ---
Pre-Procedural Eval Section A Date of Service: 07/06/21 The patient is an INPATIENT: Yes Changes since office visit: Yes Patient answered all questions; No Cold of Flu in the past 2 weeks, No New Medical Problems and No Changes in Medication The History & Physical has been completed within 30 days and I have reviewed it.: Yes Section B Chief Complaint: Intractable pain/left ankle fracture Allergies: Allergies Allergy/AdvReac Type Severity Reaction Status Date / Time amoxicillin [From AUGMENTIN] Allergy Mild Rash Verified 07/06/21 08:36 azithromycin [AZITHROMYCIN] Allergy Mild Rash Verified 07/06/21 08:36 clarithromycin [From BIAXIN] Allergy Mild Rash Verified 07/06/21 08:36 clavulanic acid Allergy Mild Rash Verified 07/06/21 08:36 [From AUGMENTIN] doxycycline [DOXYCYCLINE] Allergy Mild Rash Verified 07/06/21 08:36 lidocaine [LIDOCAINE] Allergy Mild Rash Verified 07/06/21 08:36 sulfamethoxazole Allergy Mild Rash Verified 07/06/21 08:36 [From BACTRIM] trimethoprim [From BACTRIM] Allergy Mild Rash Verified 07/06/21 08:36 Plan I have reviewed the history and physical and performed a pertinent physical examination on my patient. No changes have occurred unless specified.
--- NOTE | 2021-07-06 09:25 | P.CONAN_ITS ---
HPI - Anesthesia Eval Consult details Narrative: [age] female presenting for ORIF of ankle fracture. History of allergy to local anesthetics. Patient reports a localized rash extending to her elbows following injection of local anesthetics for her carpal tunnel release procedures bilaterally. Unclear if this was due to lidocaine or bupivacaine. She has had a labor epidural in the past without problems. Given history of hives and rashes to other medications and possibly local anesthetics, plan to defer a nerve block for today's procedure PMFSH Active Problems Active Problems: All Active Problems (Updated 07/04/21 @ 10:02 by Bakari Chaves MD) Intractable pain (Acute) Ankle fracture (Acute) Closed left ankle fracture (Acute) Past Medical History Medical History Diabetes FH: cholecystectomy GERD (gastroesophageal reflux disease) HTN (hypertension) Polymyositis Functional capacity: uses cane/walker Family History Family history of problems with anesthesia: No Surgical History Surgical History History of carpal tunnel surgery History of cholecystectomy History of gastric surgery Status post breast reduction History of Problems with Anesthesia: Yes (Excessive sleepiness in PACU) Social History Social History Household Members: Significant Other Housing: Apartment Do you presently have visiting nurse or other home services: No Patient Tobacco Use Status: Never used Tobacco Smoked in Last 30 Days: No e-Cigarette/Vaping Use: Never Used Patient Given Instructions on How to Stop Smoking: No Second Hand Smoke Exposure: No Use of substances other than those prescribed or required for medical reasons: No Currently Displaying Signs/Symptoms of Drug Intoxication Withdrawal: No Have you been hit, kicked, punched, or otherwise hurt by someone within the past year? If so, by whom?: No Do you feel safe in your current relationship?: Yes Is there a partner from a previous relationship who is making you feel unsafe now?: No Are you made to feel afraid or neglected: No Are you DNR?: No Advance Directives: No Advance Directives Information Provided: No (declined) Advance Directives on File: No Do you have thoughts of harming others: None Do you have a plan to hurt others: No Plan Recently lost weight without trying: No Eating poorly because of decreased appetite: No Nutrition Risks: No Nutritional Risk Patient : No : No Poor oral hygiene: No service: No Current occupational status: unemployed Meds Allergies Allergy/AdvReac Type Severity Reaction Status Date / Time amoxicillin [From AUGMENTIN] Allergy Mild Rash Verified 07/06/21 08:36 azithromycin [AZITHROMYCIN] Allergy Mild Rash Verified 07/06/21 08:36 clarithromycin [From BIAXIN] Allergy Mild Rash Verified 07/06/21 08:36 clavulanic acid Allergy Mild Rash Verified 07/06/21 08:36 [From AUGMENTIN] doxycycline [DOXYCYCLINE] Allergy Mild Rash Verified 07/06/21 08:36 lidocaine [LIDOCAINE] Allergy Mild Rash Verified 07/06/21 08:36 sulfamethoxazole Allergy Mild Rash Verified 07/06/21 08:36 [From BACTRIM] trimethoprim [From BACTRIM] Allergy Mild Rash Verified 07/06/21 08:36 Active Medications: Current Medications Acetaminophen (Acetaminophen 325 Mg Tablet) 650 mg PO Q6H PRN PRN Reason: Pain, Mild (Pain Scale 1-3) Last Admin: 07/03/21 19:43 Dose: 650 mg Documented by: Enoxaparin Sodium (Enoxaparin Sodium 40 Mg/0.4 Ml Syringe) 40 mg SUBCUT Q24H [facility] Last Admin: 07/05/21 20:41 Dose: 40 mg Documented by: Glipizide (Glipizide 5 Mg Tablet) 5 mg PO DAILY [facility] Last Admin: 07/06/21 08:04 Dose: Not Given Documented by: Cefazolin Sodium/Dextrose (Ancef) 2 gm in 50 mls @ 100 mls/hr IV PREOP [facility] Stop: 07/06/21 23:00 Losartan Potassium (Losartan Potassium 50 Mg Tablet) 50 mg PO BEDTIME [facility]; Protocol Last Admin: 07/05/21 20:41 Dose: 50 mg Documented by: Morphine Sulfate (Morphine Sulfate 4 Mg/Ml Cartridge) 4 mg IVPUSH Q4H PRN; Protocol PRN Reason: Pain, Severe (Pain Scale 7-10) Multivitamins/Vitamin C (Multivitamin Tablet) 1 tab PO DAILY [facility] Last Admin: 07/06/21 08:05 Dose: Not Given Documented by: Non-Formulary Medication (Liraglutide [Victoza 3-Vinicius]) 1.8 mg SUBCUT DAILY [facility] Last Admin: 07/05/21 08:39 Dose: 1.8 mg Documented by: Non-Formulary Medication (Calcium Citrate) 2 tab PO BEDTIME [facility] Last Admin: 07/05/21 20:42 Dose: 2 tab Documented by: Omeprazole (Omeprazole 40 Mg Capsule.Dr) 40 mg PO BEDTIME [facility] Last Admin: 07/05/21 20:40 Dose: 40 mg Documented by: Ondansetron HCl (Ondansetron Hcl 4 Mg/2 Ml Vial) 4 mg IVPUSH Q8H PRN PRN Reason: Nausea and Vomiting Oxycodone HCl (Oxycodone Hcl Immed Release 5 Mg Tablet) 5 mg PO Q6H PRN PRN Reason: Pain, Severe (Pain Scale 7-10) Last Admin: 07/05/21 23:59 Dose: 5 mg Documented by: Pharmacy Consult (Consult Rx Perform Med Rec) 1 each MISCELLANE ONCE PRN PRN Reason: Consult order Sodium Chloride (0.9 % Sodium Chloride Flush 3 Ml Syringe) 3 ml IVFLUSH QSHIFT [facility] Last Admin: 07/06/21 08:04 Dose: Not Given Documented by: Tramadol HCl (Tramadol Hcl 50 Mg Tablet) 50 mg PO Q6H PRN PRN Reason: Pain, Severe (Pain Scale 7-10) Last Admin: 07/05/21 18:02 Dose: 50 mg Documented by: Home Medications Medication Instructions Recorded Confirmed Last Taken Type glipizide 5 mg tablet 1 tab PO DAILY 07/03/21 07/03/21 07/02/21 21:00 History liraglutide 0.6 mg/0.1 mL (18 mg/3 1.8 mg SUBCUT DAILY 07/03/21 07/04/21 07/03/21 08:00 History mL) subcutaneous pen injector (Victoza 3-Vinicius) losartan 50 mg tablet 1 tab PO BEDTIME 07/03/21 07/04/21 07/02/21 21:00 History omeprazole 40 mg capsule,delayed 1 cap PO BEDTIME 07/03/21 07/04/21 07/03/21 08:00 History release calcium citrate 200 mg (950 mg) 2 tab PO BEDTIME 07/04/21 07/04/21 Unknown History tablet multivitamin 1 tab PO BEDTIME 07/04/21 07/04/21 Unknown History Exam Exam Date and Time: July 06, 2021 0925 Height,Weight and Vital Signs: Height 5 ft 4 in Weight 228 lb 9.91 oz Last Vital Signs Temp 98.6 F 07/06/21 07:58 Pulse 80 07/06/21 07:58 Resp 16 07/06/21 07:58 BP 143/63 H 07/06/21 07:58 Pulse Ox 96 07/06/21 07:58 Pertinent Lab Results Pertinent Lab Results: Laboratory Tests 07/03/21 07/03/21 07/04/21 19:49 22:56 07:22 WBC RBC Hgb Hct MCV MCH MCHC RDW Plt Count MPV Absolute Nucleated RBC Nucleated RBC % (auto) Sodium Potassium Chloride Carbon Dioxide Anion Gap BUN Creatinine Estim Creat Clear Calc Estimated GFR POC Glucose 196 H 123 H Random Glucose Estimat Average Glucose Hemoglobin A1c % Calcium COVID-19 ([place]) Negative COVID-19 Clin Com See Note 07/04/21 07/04/21 07/04/21 10:55 16:20 20:19 WBC RBC Hgb Hct MCV MCH MCHC RDW Plt Count MPV Absolute Nucleated RBC Nucleated RBC % (auto) Sodium Potassium Chloride Carbon Dioxide Anion Gap BUN Creatinine Estim Creat Clear Calc Estimated GFR POC Glucose 164 H 186 H 233 H Random Glucose Estimat Average Glucose Hemoglobin A1c % Calcium COVID-19 ([place]) COVID-19 [employer] Com 07/05/21 07/05/21 07/05/21 07:06 08:36 08:36 WBC 5.1 RBC 3.96 L Hgb 12.0 Hct 36.5 L MCV 92.2 MCH 30.3 MCHC 32.9 RDW 13.7 Plt Count 209 MPV 9.9 Absolute Nucleated RBC 0.000 Nucleated RBC % (auto) 0.0 Sodium 141 Potassium 3.8 Chloride 105 Carbon Dioxide 27 Anion Gap 13 BUN 13 Creatinine 0.51 Estim Creat Clear Calc 142.7 Estimated GFR > 60 POC Glucose 149 H Random Glucose 179 H Estimat Average Glucose Hemoglobin A1c % Calcium 9.1 COVID-19 ([place]) COVID-19 Clin Com 07/05/21 07/05/21 07/05/21 08:36 11:01 15:59 WBC RBC Hgb Hct MCV MCH MCHC RDW Plt Count MPV Absolute Nucleated RBC Nucleated RBC % (auto) Sodium Potassium Chloride Carbon Dioxide Anion Gap BUN Creatinine Estim Creat Clear Calc Estimated GFR POC Glucose 145 H 171 H Random Glucose Estimat Average Glucose 146 Hemoglobin A1c % 6.7 Calcium COVID-19 ([place]) COVID-19 Clin Com 07/05/21 07/06/21 20:07 07:05 WBC RBC Hgb Hct MCV MCH MCHC RDW Plt Count MPV Absolute Nucleated RBC Nucleated RBC % (auto) Sodium Potassium Chloride Carbon Dioxide Anion Gap BUN Creatinine Estim Creat Clear Calc Estimated GFR POC Glucose 194 H 116 H Random Glucose Estimat Average Glucose Hemoglobin A1c % Calcium COVID-19 ([place]) COVID-19 Clin Com Airway Mallampati Class: II TM Dist: >3cm Neck ROM: Full Loose/Missing/Broken Teeth: No Assessment and Plan Assessment Anesthesia Assessment: Anesthesia Plan Discussed and Chart Reviewed Final Anesthetic Review Family History of Problems with Anesthesia: No History of Problems with Anesthesia: Yes (Excessive sleepiness in PACU) NPO: Yes ASA Class: III Final Preanesthetic Review: No Changes in Pt Med Stat, Meds/Allgs Chart Reviewed, Consent Obtained/Reviewed and Anes Risks/Benef Reviewed Patient Risk: Intermediate Procedure Risk: Low Anesthetic Plan Anesthetic Plan: GA Disposition: Standard PACU
--- NOTE | 2021-07-06 10:53 | PM.OP ---
Brief Operative Note Date of Service: 07/06/21 Pre-op diagnosis: left ankle bimalleolar ankle fracture Post-op diagnosis: other (1) left ankle bimalleolar ankle fracture 2) syndesmosis disruption left ankle) Procedure: 1) ORIF left ankle bimalleolar fracture 2) ORIF left ankle syndesmosis Implants: Styker lateral locking plate Ambrocio 4.0 partially threaded cannulated screws 40 mm x 2 Surgeon: Harley Villanueva MD Anesthesia: GETA Was an Computer Numerical Control Grinder used for this Procedure?: No Estimated blood loss (mL): 20 Tourniquet time (min): 65 IV fluids (mL): 1,000 Pathology: none sent Condition: stable Disposition: PACU
[2021-07-06] MEDS: oxyCODONE HCl Immed Release 5 MG TABLET PO ×2 (10:59→16:51)
[2021-07-06] MEDS: HYDROmorphone HCl 0.5 MG/0.5 ML SYRINGE 0.25 MG IVPUSH ×3 (11:02→11:23)
--- NOTE | 2021-07-06 11:25 | MHC.CM.PN ---
[facility] IS FOLLOWING PT ..AWAITING PT AND OT EVAL AFTER ANKLE STABILIZATION
[2021-07-06] MEDS: Morphine Sulfate 4 MG/ML CARTRIDGE IVPUSH ×2 (13:30→23:09)
[2021-07-06 16:20] LABS: Glucose, Whole Blood 300 mg/dL (60-115)
[2021-07-06] MEDS: 0.9 % Sodium Chloride Flush 3 ML SYRINGE IVFLUSH ×2 (17:00→20:55)
[2021-07-06] MEDS: Clindamycin Phosphate/D5W 600 MG/50 ML PIGGYBACK 100 MG IV (17:00)
[2021-07-06 20:17] LABS: Glucose, Whole Blood 391 mg/dL (60-115)
[2021-07-06] MEDS: Omeprazole 40 MG CAPSULE.DR PO (20:55)
[2021-07-06] MEDS: Enoxaparin Sodium 40 MG/0.4 ML SYRINGE SUBCUT (20:55)
[2021-07-06] MEDS: Losartan Potassium 50 MG TABLET PO (20:55)
[2021-07-06 23:21] LABS: Glucose, Whole Blood 267 mg/dL (60-115)
[2021-07-07] MEDS: oxyCODONE HCl Immed Release 5 MG TABLET PO ×3 (00:46→17:48)
[2021-07-07] MEDS: glipiZIDE 5 MG TABLET PO (06:51)
[2021-07-07] MEDS: traMADoL HCL 50 MG TABLET PO ×2 (06:51→15:28)
[2021-07-07 07:38] LABS: Glucose, Whole Blood 213 mg/dL (60-115)
--- NOTE | 2021-07-07 07:56 | P.PNOP_ITS ---
Subjective Subjective Date of Service: 07/07/21 Interval history: POD1 s/p aurelio left ankle fx ORIF. Patient resting comfortably in bed. No overnight events. No additional complaints. Physical Exam Vital Signs: Vital Signs: Last Vital Signs Temp 99.2 F 07/06/21 22:58 Pulse 85 07/06/21 22:58 Resp 18 07/06/21 22:58 BP 157/72 H 07/06/21 22:58 Pulse Ox 96 07/06/21 22:58 Body Mass Index 39.2 Const: General: cooperative, healthy appearing and no acute distress Resp: Effort & Inspection: normal respiratory effort and able to speak in complete sentences Cardio: Rate: regular rate Peripheral pulses: Peripheral pulses 2+ throughout GI: Palpation (GI): Soft to palpation Skin: Lesions: no lesions Rashes: no rashes Extrem: Other: Left ankle splint is clean, dry, and intact. Patient is able to move digits. NVI. Procedures Date of Service Date of Service: 07/07/21 Progress Note: A&P Assessment and plan (1) Closed left ankle fracture: Status: Acute Assessment and Plan: Continue pain mgmnt begin PT for LT ankle ORIF - NWB Dispo planning-Pending PT eval, pain mgmnt Fall Risk Details Current Medications: Current Medications Acetaminophen (Acetaminophen 325 Mg Tablet) 650 mg PO Q6H PRN PRN Reason: Pain, Mild (Pain Scale 1-3) Last Admin: 07/03/21 19:43 Dose: 650 mg Documented by: Diphenhydramine HCl (Diphenhydramine Hcl 50 Mg/Ml Vial) 12.5 mg IVPUSH Q4H PRN PRN Reason: Rash or nausea Enoxaparin Sodium (Enoxaparin Sodium 40 Mg/0.4 Ml Syringe) 40 mg SUBCUT Q24H [facility] Last Admin: 07/06/21 20:55 Dose: 40 mg Documented by: Glipizide (Glipizide 5 Mg Tablet) 5 mg PO DAILY@0700 [facility] Last Admin: 07/07/21 06:51 Dose: 5 mg Documented by: Hydromorphone HCl (Hydromorphone Hcl 0.5 Mg/0.5 Ml Syringe) 0.25 mg IVPUSH Q5M PRN; Protocol PRN Reason: Pain, Severe (Pain Scale 7-10) Last Admin: 07/06/21 11:23 Dose: 0.25 mg Documented by: Losartan Potassium (Losartan Potassium 50 Mg Tablet) 50 mg PO BEDTIME [facility]; Protocol Last Admin: 07/06/21 20:55 Dose: 50 mg Documented by: Morphine Sulfate (Morphine Sulfate 4 Mg/Ml Cartridge) 4 mg IVPUSH Q4H PRN; Protocol PRN Reason: Pain, Severe (Pain Scale 7-10) Last Admin: 07/06/21 23:09 Dose: 4 mg Documented by: Multivitamins/Vitamin C (Multivitamin Tablet) 1 tab PO DAILY [facility] Last Admin: 07/06/21 08:05 Dose: Not Given Documented by: Non-Formulary Medication (Liraglutide [Victoza 3-Vinicius]) 1.8 mg SUBCUT DAILY [facility] Last Admin: 07/06/21 16:55 Dose: Not Given Documented by: Non-Formulary Medication (Calcium Citrate) 2 tab PO BEDTIME [facility] Last Admin: 07/06/21 20:55 Dose: 2 tab Documented by: Omeprazole (Omeprazole 40 Mg Capsule.Dr) 40 mg PO BEDTIME [facility] Last Admin: 07/06/21 20:55 Dose: 40 mg Documented by: Ondansetron HCl (Ondansetron Hcl 4 Mg/2 Ml Vial) 4 mg IVPUSH Q8H PRN PRN Reason: Nausea and Vomiting Ondansetron HCl (Ondansetron Hcl 4 Mg/2 Ml Vial) 4 mg IVPUSH ONCE PRN PRN Reason: Nausea and Vomiting Oxycodone HCl (Oxycodone Hcl Immed Release 5 Mg Tablet) 5 mg PO Q6H PRN PRN Reason: Pain, Severe (Pain Scale 7-10) Last Admin: 07/07/21 00:46 Dose: 5 mg Documented by: Pharmacy Consult (Consult Rx Perform Med Rec) 1 each MISCELLANE ONCE PRN PRN Reason: Consult order Sodium Chloride (0.9 % Sodium Chloride Flush 3 Ml Syringe) [facility] Last Admin: 07/06/21 20:55 Dose: 3 ml Documented by: Tramadol HCl (Tramadol Hcl 50 Mg Tablet) 50 mg PO Q6H PRN PRN Reason: Pain, Severe (Pain Scale 7-10) Last Admin: 07/07/21 06:51 Dose: 50 mg Documented by: Time Spent With Patient Time: Total time spent is greater than 50% in coordination of care (as documented) at patient's floor/unit and/or counseling patient: Time with patient: less than 15 minutes Quality Stroke Does the patient have a stroke diagnosis?: No VTE Prior VTE?: No VTE Risk Level:: Medical - moderate - high VTE Device Contraindication: Treatment Not Indicated VTE Drug Contraindication: N/A - Med Ordered
[2021-07-07 08:00] VITALS: BP 133/61; PULSE 74; RESP 18; TEMP 37; O2SAT 97
--- NOTE | 2021-07-07 08:05 | PC.NURSE ---
Called pharmacy to inquire about pt specific med, Victroza. Per pharmacy, medication should not have been approved. Notified Dr Evans who states that the patient can have this medication this AM, as she was given it on Monday; held yesterday. Dr Evans states that he will speak to patient this morning regarding this medication.
[2021-07-07] MEDS: Multivitamin TABLET 1 TAB PO (08:14)
[2021-07-07] MEDS: 0.9 % Sodium Chloride Flush 3 ML SYRINGE IVFLUSH (08:14)
[2021-07-07 08:29] VITALS: BP 133/61; PULSE 74; O2SAT 97
--- NOTE | 2021-07-07 08:30 | PC.NURSE ---
Pt self set and self administered Victoza
[2021-07-07] MEDS: Morphine Sulfate 4 MG/ML CARTRIDGE IVPUSH (10:20)
--- NOTE | 2021-07-07 10:33 | HO.POSTANES ---
Post Anesthesia Evaluation Post Anesthesia Evaluation Vital Signs: Vital Signs Temp Pulse Resp BP Pulse Ox 07/07/21 08:29 74 133/61 97 07/07/21 08:00 98.6 F 74 18 133/61 97 07/06/21 22:58 99.2 F 85 18 157/72 H 96 Anesthesia: General Mental Status: Awake Nausea/Vomiting: None Hydration: Adequate Anesthesia-Related Issues: No Anes. Related Issues
[2021-07-07 11:06] LABS: Glucose, Whole Blood 145 mg/dL (60-115)
[2021-07-07 11:18] VITALS: BP 117/58; PULSE 73; RESP 18; TEMP 36.8; O2SAT 96
--- NOTE | 2021-07-07 11:24 | PM.DS ---
DS: Providers Provider Date of Service: 07/07/21 Date of admission: 07/03/21 17:34 Primary care physician: Unknown Physician DS: Diagnosis Discharge Diagnosis (1) Closed left ankle fracture: Status: Acute DS: Summary Hospital Course Hospital Course: From the admission H&P: ?This is a 55-year-old female with history of polymyositis who presents to the emergency department with pain in her left leg.? She states that she tripped over her her door mat and fell.? She denies any dizziness prior to her fall.? She denies loss of consciousness and she did not her head.? She was brought into the emergency department by ambulance and workup in the emergency department revealed a displaced left by malleolar fracture with ankle mortise instability and deformity.? Due to her polymyositis she has difficulty ambulating at baseline and usually uses a cane.? With unstable fracture she is unable to bear weight on her left leg and therefore is unable to use her cane. Due to inability to ambulate and pain, she will be admitted to the medical service with plan for orthopedic consultation. Hospital Course: Patient was admitted for intractable pain secondary to bi-malleolar ankle fx. She underwent successful operative repair and now will be transferred to short term rehabilitation for further management. Her chronic conditions were fairly stable in the hospital except mild hyperglycemia which resolved on its own without insulin. Orthopedics has recommended lovenox for 4 weeks. Time Spent with Patient Time attestation: Total time spent providing and/or coordinating discharge services: Discharge coordination time: Greater than 30 minutes Quality: Stroke Does the patient have a stroke diagnosis?: No Physical Exam Vital Signs: Vital Signs: Last Vital Signs Temp 98.2 F 07/07/21 11:18 Pulse 73 07/07/21 11:18 Resp 18 07/07/21 11:18 BP 117/58 L 07/07/21 11:18 Pulse Ox 96 07/07/21 11:18 Body Mass Index 39.2 Const: Other: General - no acute distress, appears comfortable Cardiovascular - regular rate and rhythm, S1-S2 Lungs - normal respiratory effort, clear to auscultation bilaterally, no wheezing Abdomen - soft, nontender, no rebound or guarding Extremities - L splint c/d/i Neuro - awake and alert, no focal deficits DS: Data Data Completed and Pending Labs on day of discharge: Laboratory Results - last 24 hr 07/06/21 07/06/21 07/06/21 16:00 20:13 23:16 POC Glucose 300 H 391 H* 267 H 07/07/21 07/07/21 07:19 10:50 POC Glucose 213 H 145 H Discharge Plan Discharge Patient Disposition: Xfer Inpatient Rehab Fac Discharge Diagnosis: ORIF left ankle bimalleolar fracture Referrals: anjelica bedoya [Other] - 1 Week Vera Parks PA-C [Physician Learning Engineer] - 2 Weeks (2 week follow-up. The orthopedic office will reach out to make your appointment.) Physician,Melchor J [Primary Care Provider] - 1 Week Discharge Medications: New oxycodone 5 mg Tablet 5 mg PO Q6H PRN (Reason: Pain, Severe (Pain Scale 7-10)) Qty: 30 RF: 0 enoxaparin [Lovenox] 40 mg/0.4 mL syringe 40 mg subcut DAILY 28 Days Qty: 11.2 RF: 0 Continued losartan 50 mg tablet 1 tab PO BEDTIME RF: 0 omeprazole 40 mg capsule,delayed release(DR/EC) 1 cap PO BEDTIME RF: 0 glipizide 5 mg tablet 1 tab PO DAILY RF: 0 Victoza 3-Vinicius 0.6 mg/0.1 mL (18 mg/3 mL) pen injector 1.8 mg subcut DAILY RF: 0 multivitamin Tablet 1 tab PO BEDTIME RF: 0 calcium citrate 200 mg (950 mg) tablet 2 tab PO BEDTIME RF: 0 Discharge Orders: Discharge Order (Routine); Ordered 07/07/21 Ordered By: Daniel Evans Diet: advance to usual diet Activity on Discharge: As tolerated Stand Alone Forms: Patient Portal Discharge page Activity Restrictions/Additional Instructions: NWB x 6-8 weeks Keep splint clean, dry, and intact. Contact the orthopedic office if in need of a splint change No tub bath or shower-Keep dressing clean, dry and intact Follow up with orthopedics in 2 weeks Care Plan Goals: [facility] get treatment at [facility] Concerns: L ankle fracture Plan of Treatment: Get PT a rehab Assessment: see d/c summary
--- NOTE | 2021-07-07 11:41 | PM.EVENT ---
Event Note Date of Service: 07/07/21 Event Note: Progress Note S Seen and examined this AM Ankle pain improved O Vitals - last documented Gen - NAD CVS - S1S2 Lungs - clear Ext - no edema Nuero - no focal A/P 55 yo F admitted for L ankle fx - s/p ORIF stable for transfer to acute rehab when bed avilable
--- NOTE | 2021-07-07 12:04 | P.PNIM_ITS ---
Subjective Subjective Date of Service: 07/06/21 Interval History: late entry for 07/06 pt seen and examined post-op has L ankle pain otherwise complaints Review of Systems negative except hpi Physical Exam Vital Signs: Vital Signs: Last Vital Signs Temp 98.2 F 07/07/21 11:18 Pulse 73 07/07/21 11:18 Resp 18 07/07/21 11:18 BP 117/58 L 07/07/21 11:18 Pulse Ox 96 07/07/21 11:18 Body Mass Index 39.2 Const: Other: General - no acute distress, appears comfortable Cardiovascular - regular rate and rhythm, S1-S2 Lungs - normal respiratory effort, clear to auscultation bilaterally, no wheezing Abdomen - soft, nontender, no rebound or guarding Extremities - L ankle c/d/i Neuro - awake and alert, no focal deficits Objective Data Active Medications Acetaminophen (Acetaminophen 325 Mg Tablet) 650 mg PO Q6H PRN PRN Reason: Pain, Mild (Pain Scale 1-3) Last Admin: 07/03/21 19:43 Dose: 650 mg Documented by: ARASH Diphenhydramine HCl (Diphenhydramine Hcl 50 Mg/Ml Vial) 12.5 mg IVPUSH Q4H PRN PRN Reason: Rash or nausea Enoxaparin Sodium (Enoxaparin Sodium 40 Mg/0.4 Ml Syringe) 40 mg SUBCUT Q24H [facility] Last Admin: 07/06/21 20:55 Dose: 40 mg Documented by: ALANA Glipizide (Glipizide 5 Mg Tablet) 5 mg PO DAILY@0700 [facility] Last Admin: 07/07/21 06:51 Dose: 5 mg Documented by: ALANA Hydromorphone HCl (Hydromorphone Hcl 0.5 Mg/0.5 Ml Syringe) 0.25 mg IVPUSH Q5M PRN; Protocol PRN Reason: Pain, Severe (Pain Scale 7-10) Last Admin: 07/06/21 11:23 Dose: 0.25 mg Documented by: JOSÉ MIGUEL Losartan Potassium (Losartan Potassium 50 Mg Tablet) 50 mg PO BEDTIME [facility]; Protocol Last Admin: 07/06/21 20:55 Dose: 50 mg Documented by: ALANA Morphine Sulfate (Morphine Sulfate 4 Mg/Ml Cartridge) 4 mg IVPUSH Q4H PRN; Protocol PRN Reason: Pain, Severe (Pain Scale 7-10) Last Admin: 07/07/21 10:20 Dose: 4 mg Documented by: FRAN Multivitamins/Vitamin C (Multivitamin Tablet) 1 tab PO DAILY [facility] Last Admin: 07/07/21 08:14 Dose: 1 tab Documented by: FRAN Non-Formulary Medication (Liraglutide [Victoza 3-Vinicius]) 1.8 mg SUBCUT DAILY [facility] Last Admin: 07/07/21 08:14 Dose: 1.8 mg Documented by: FRAN Non-Formulary Medication (Calcium Citrate) 2 tab PO BEDTIME [facility] Last Admin: 07/06/21 20:55 Dose: 2 tab Documented by: ALANA Omeprazole (Omeprazole 40 Mg Capsule.Dr) 40 mg PO BEDTIME [facility] Last Admin: 07/06/21 20:55 Dose: 40 mg Documented by: ALANA Ondansetron HCl (Ondansetron Hcl 4 Mg/2 Ml Vial) 4 mg IVPUSH Q8H PRN PRN Reason: Nausea and Vomiting Ondansetron HCl (Ondansetron Hcl 4 Mg/2 Ml Vial) 4 mg IVPUSH ONCE PRN PRN Reason: Nausea and Vomiting Oxycodone HCl (Oxycodone Hcl Immed Release 5 Mg Tablet) 5 mg PO Q6H PRN PRN Reason: Pain, Severe (Pain Scale 7-10) Last Admin: 07/07/21 11:41 Dose: 5 mg Documented by: FRAN Pharmacy Consult (Consult Rx Perform Med Rec) 1 each MISCELLANE ONCE PRN PRN Reason: Consult order Sodium Chloride (0.9 % Sodium Chloride Flush 3 Ml Syringe) 3 ml IVFLUSH QSHIFT [facility] Last Admin: 07/07/21 08:14 Dose: 3 ml Documented by: FRAN Tramadol HCl (Tramadol Hcl 50 Mg Tablet) 50 mg PO Q6H PRN PRN Reason: Pain, Severe (Pain Scale 7-10) Last Admin: 07/07/21 06:51 Dose: 50 mg Documented by: ALANA Labs CBC & Chem 7: 07/05/21 08:36 07/05/21 08:36 Labs: Laboratory Results - last 24 hr 07/06/21 07/06/2121 16:00 20:13 23:16 POC Glucose 300 H 391 H* 267 H 07/07/21 07/07/21 07:19 10:50 POC Glucose 213 H 145 H Assessment and Plan (1) Ankle fracture: Status: Acute Assessment and Plan: 55-year-old female with polymyositis, diabetes, hypertension who presents to the emergency department after mechanical fall found to have left bimalleolar fracture admitted for intractable pain and inability to ambulate Intractable left ankle pain due to Left bimalleolar fracture s/p operative repair continue pain control pt when okay with ortho and anticpiate str Diabetes type 2 continue home meds -- pt refusing insulin HTN continue losartan 50 mg daily follow blood pressure closely gerd continue omeprazole Obesity recommended low-calorie diet exercise and weight loss since contributing to diabetes and hypertension Polymyositis chronic outpatient f/u with her doctors Full Code DVT pptx, Lovenox Dispo -- anticipate that she will need STR Quality Stroke Does the patient have a stroke diagnosis?: No VTE Prior VTE?: No VTE Risk Level:: Medical - moderate - high VTE Device Contraindication: Treatment Not Indicated VTE Drug Contraindication: N/A - Med Ordered
--- NOTE | 2021-07-07 12:11 | P.OP_ITS ---
Operative Note Operative Note Date of Service: 07/06/21 Narrative: Pre-op diagnosis: left ankle bimalleolar ankle fracture Post-op diagnosis: other (1) left ankle bimalleolar ankle fracture 2) syndesmosis disruption left ankle) Procedure: 1) ORIF left ankle bimalleolar fracture 2) ORIF left ankle syndesmosis Implants: Styker lateral locking plate Hagerman 4.0 partially threaded cannulated screws 40 mm x 2 Surgeon: Harley Villanueva MD Anesthesia: GETA Was an Clerk Of [employer] used for this Procedure?: No Estimated blood loss (mL): 20 Tourniquet time (min): 65 IV fluids (mL): 1,000 Pathology: none sent Condition: stable Disposition: PACU Procedure in detail: Patient was brought to the operating room placed supine on the operative table and prepped and draped in standard sterile fashion. A time-out was called to identify proper site, proper surgeon and proper procedure and IV antibiotics per weight were administered. I began by exsanguinating the limb a to 300 mm Hg. I then made a standard lateral incision over the fibula. Full-thickness flaps were taken down to the fibula where the oblique fracture was identified. Combination of rongeur and a curette and [place] was used to clean up the fracture and then lobster claw was used to reduce it. A 6 old lateral fibular locking plate was selected and 4 locking screws were placed proximal to the fracture and 4 distal. Her bone quality was poor. Biplanar fluoroscopy was used to confirm the appropriate position of the hardware and of the fracture reduction. I then turned my attention to the medial malleolus where a curvilinear incision was made over the distal aspect of the medial malleolus. The fracture was easily identified after to full-thickness flaps were developed and the wound was irrigated and the fracture cleaned up until I was able to reduce with sharp tenaculum. I then placed 240 mm partially-threaded cannulated cancellous screws from distal to proximal and slightly anterior to posterior in parallel across the fracture site. I had excellent reproduction of the normal anatomy. The syndesmosis was then assessed using external rotation test and I felt that there was increase of both medial and lateral clear space so the decision was made to place a tight rope syndesmotic apparatus. I used a clamp to reduce the syndesmosis and then placed a screw the tight rope using standard technique from lateral to medial. This was done through the open hole in the lateral fibular plate. The button was then flipped on medial cortex and tightened. Once I was happy with the position I retested the syndesmosis and it was stable using external rotation test. I then irrigated copiously closed with absorbable suture and skin glue and patient was placed in a sterile dressing and well- padded posterior splint. She was then extubated brought to recovery room in stable condition there were no known complications.
--- NOTE | 2021-07-07 13:21 | MHC.CM.PN ---
pt refused [facility] which had accepted her bed located at [facility] for today pending auth
[2021-07-07 14:24] LABS: COVID-19 Test Negative (Negative); IDNOW Serial# 9DD0AD1C
== END 2021-07-07 18:02 | disposition skilled nursing facility (03) | DRG 493 ==
LOC: HO.ED 15:12 → HO.EDOVER 17:48 → HO.IMC 19:31
PROVIDERS: Nurse Practitioner Family; Orthopaedic Surgery; Admitting Provider Hospitalist; Emergency Provider Emergency Medicine Emergency Medical Services; Visit Provider Family Medicine
PROC: 0QSK04Z Reposition Left Fibula with Internal Fixation Device, Open Approach (ICD-10-PCS; principal; 2021-07-06 08:50)
DX: S82.842A Displaced bimalleolar fracture of left lower leg, initial encounter for closed fracture (principal); M33.20 Polymyositis, organ involvement unspecified; W01.0XXA Fall on same level from slipping, tripping and stumbling without subsequent striking against object, initial encounter; Y93.9 Activity, unspecified; Y92.008 Other place in unspecified non-institutional (private) residence as the place of occurrence of the external cause; I10 Essential (primary) hypertension; E66.9 Obesity, unspecified; Z68.39 Body mass index [BMI] 39.0-39.9, adult; K21.9 Gastro-esophageal reflux disease without esophagitis; E11.9 Type 2 diabetes mellitus without complications; Z20.822 Contact with and (suspected) exposure to COVID-19; Z98.84 Bariatric surgery status; Z88.0 Allergy status to penicillin; Z88.2 Allergy status to sulfonamides; Z79.899 Other long term (current) drug therapy
CPT/HCPCS: 36415; 73560; 73610; 80048; 82947; 83036; 85027; 87635; 97162; 97166; 99285; C1713; J0690; J1100; J1170; J1650; J2250; J2270; J2405; J3010

== ENCOUNTER 2021-07-09 06:42 | Outpatient (REF) | payer MEDICARE, SELFPAY ==
[2021-07-09 06:47] LABS: MANUAL DIFF FLAG NO
[2021-07-09 06:58] LABS: Basophils Percent Auto 0.6 % (0-2); Eosinophils Absolute Auto 0.3 X10*3/uL (0.0-0.4); Eosinophils Percent Auto 3.8 % (0-4); Hematocrit 36.7 % (37.0-47.0); Hemoglobin 12.1 g/dl (12.0-16.0); Imm Gran Abs Auto 0.04 X10*3/uL (0.00-0.03); Imm Gran Pct Auto 0.6 % (0.0-0.4); Lymphocytes Absolute Auto 2.2 X10*3/uL (1.2-4.9); Lymphocytes Percent Auto 33.4 % (20-40); Mean Corpuscular Hemoglobin 30.6 pg (27.0-33.0); Mean Corpuscular Volume 92.9 fL (80.0-98.0); Mean Platelet Volume 9.7 fL (9.4-12.3); Monocytes Absolute Auto 0.6 X10*3/uL (0.1-1.2); Monocytes Percent Auto 9.2 % (2-11); Neutrophils Absolute Auto 3.4 x10*3/uL (2.0-8.3); Neutrophils Percent Auto 52.4 % (45-73); Platelet Count 238 X10*3/uL (160-400); Red Blood Count 3.95 X10*6/uL (4.20-5.50); Red Cell Distribution Width 13.8 % (11.0-16.0); White Blood Count 6.5 X10*3/uL (4.8-10.8)
[2021-07-09 07:28] LABS: Alanine Aminotransferase 71 U/L (0-31); Albumin Level 3.6 g/dL (3.5-5.0); Alkaline Phosphatase 205 U/L (39-117); Anion Gap 15 (12-20); Aspartate Amino Transferase 58 U/L (5-31); Bilirubin Total 1.5 mg/dL (0.0-1.0); Blood Urea Nitrogen 12 mg/dL (9-16); Calcium 9.3 mg/dL (8.4-10.2); Carbon Dioxide 28 mmol/L (22-29); Chloride 100 mmol/L (96-108); Estimated Glomerular Filt Rate > 60; Glucose Random 164 mg/dL (60-115); Potassium 4.3 mmol/L (3.3-5.1); Sodium 139 mmol/L (135-145)
== END 2021-07-09 06:43 | disposition home or self-care (01) ==
LOC: HO.MMNH1L 06:42
PROVIDERS: Visit Provider Family Medicine
DX: E03.9 Hypothyroidism, unspecified (principal); E11.9 Type 2 diabetes mellitus without complications
CPT/HCPCS: 36415; 80053; 85025

== ENCOUNTER 2021-07-12 00:52 | Outpatient (REF) | payer MEDICARE, SELFPAY ==
[2021-07-12 06:40] LABS: MANUAL DIFF FLAG NO
[2021-07-12 06:55] LABS: Basophils Percent Auto 0.4 % (0-2); Eosinophils Absolute Auto 0.3 X10*3/uL (0.0-0.4); Eosinophils Percent Auto 4.5 % (0-4); Hemoglobin 11.4 g/dl (12.0-16.0); Imm Gran Abs Auto 0.04 X10*3/uL (0.00-0.03); Imm Gran Pct Auto 0.7 % (0.0-0.4); Lymphocytes Absolute Auto 1.8 X10*3/uL (1.2-4.9); Lymphocytes Percent Auto 31.7 % (20-40); Mean Corpuscular HGB Conc 31.7 g/dl (31.0-35.0); Mean Corpuscular Hemoglobin 29.8 pg (27.0-33.0); Mean Platelet Volume 10.1 fL (9.4-12.3); Monocytes Absolute Auto 0.5 X10*3/uL (0.1-1.2); Monocytes Percent Auto 8.6 % (2-11); Neutrophils Percent Auto 54.1 % (45-73); Platelet Count 254 X10*3/uL (160-400); Red Blood Count 3.83 X10*6/uL (4.20-5.50); Red Cell Distribution Width 13.7 % (11.0-16.0); White Blood Count 5.6 X10*3/uL (4.8-10.8)
[2021-07-12 07:23] LABS: Alanine Aminotransferase 58 U/L (0-31); Albumin Level 3.5 g/dL (3.5-5.0); Alkaline Phosphatase 215 U/L (39-117); Anion Gap 15 (12-20); Aspartate Amino Transferase 38 U/L (5-31); Bilirubin Total 1.5 mg/dL (0.0-1.0); Blood Urea Nitrogen 12 mg/dL (9-16); Calcium 8.9 mg/dL (8.4-10.2); Carbon Dioxide 26 mmol/L (22-29); Chloride 103 mmol/L (96-108); Estimated Glomerular Filt Rate > 60; Glucose Random 157 mg/dL (60-115); Potassium 4.1 mmol/L (3.3-5.1); Sodium 140 mmol/L (135-145); Total Protein 5.8 g/dL (6.5-8.0)
== END 2021-07-12 00:53 | disposition home or self-care (01) ==
LOC: HO.MMNH1L 00:52
PROVIDERS: Visit Provider Family Medicine
DX: I10 Essential (primary) hypertension (principal); E11.9 Type 2 diabetes mellitus without complications
CPT/HCPCS: 36415; 80053; 85025

== ENCOUNTER 2021-07-19 00:13 | Outpatient (REF) | payer MEDICARE, SELFPAY ==
--- NOTE | ~2021-07-19 | XR_ITS ---
EXAMINATION: XR ANKLE, LEFT CLINICAL INFORMATION: Pain COMPARISON: 07/03/2021 TECHNIQUE: AP, lateral, and mortise views of the left ankle. FINDINGS: Plain screw fixation hardware along the lateral distal fibula. 2 cannulated screws transfix the medial malleolus. Additional Endobuttons secure the distal tibia and fibula. Overlying skin cipriano. Alignment of the tibial and fibular fractures is anatomic. The ankle mortise is congruent. Diffuse soft tissue swelling. Achilles and plantar heel spurs. XR/XR ankle LT min 3V IMPRESSION: Intact fixation hardware at the distal tibia and fibula with appropriate alignment. Diffuse soft tissue swelling.
== END 2021-07-19 00:14 | disposition home or self-care (01) ==
LOC: HO.MMNH1L 00:13
PROVIDERS: Visit Provider Family Medicine
DX: I10 Essential (primary) hypertension (principal); E11.9 Type 2 diabetes mellitus without complications; M25.572 Pain in left ankle and joints of left foot; Z98.890 Other specified postprocedural states; Z87.81 Personal history of (healed) traumatic fracture
CPT/HCPCS: 73610; 99212

== ENCOUNTER 2021-07-19 07:38 | Outpatient (REF) | payer MEDICARE, SELFPAY | END 2021-07-19 07:39 | disposition home or self-care (01) | LOC: HO.HOSX 07:38 | PROVIDERS: Visit Provider Physician Assistant | DX: Z13.89 Encounter for screening for other disorder (principal) ==

== ENCOUNTER → 2021-07-26 13:53 | Outpatient (BNVA) | payer MEDICARE, SELFPAY | PROVIDERS: PCP Hospitalist; Visit Provider Physician Assistant | DX: Z98.890 Other specified postprocedural states (principal); Z87.81 Personal history of (healed) traumatic fracture | CPT/HCPCS: 29405; 99212 ==

== ENCOUNTER 2021-08-16 07:06 | Outpatient (REF) | payer MEDICARE, SELFPAY ==
--- NOTE | ~2021-08-16 | XR_ITS ---
EXAMINATION: XR ANKLE, LEFT CLINICAL INFORMATION: Pain COMPARISON: Left ankle x-rays 07/19/2021 TECHNIQUE: AP, lateral, and mortise views of the left ankle. FINDINGS: Stable postsurgical changes of the ankle. Fractures of the distal tibia and fibula are again noted but demonstrate appreciable interval callus formation. The ankle mortise is well-maintained. Diffuse soft tissue swelling of the ankle persists. XR/XR ankle LT min 3V IMPRESSION: -Interval healing of distal tibia and fibula fractures. -No evidence of hardware failure.
== END 2021-08-16 07:07 | disposition home or self-care (01) ==
LOC: HO.HOSX 07:06
PROVIDERS: Visit Provider Physician Assistant
DX: M25.572 Pain in left ankle and joints of left foot (principal); I10 Essential (primary) hypertension; K21.9 Gastro-esophageal reflux disease without esophagitis; Z87.81 Personal history of (healed) traumatic fracture; Z98.890 Other specified postprocedural states; Z88.1 Allergy status to other antibiotic agents; Z88.2 Allergy status to sulfonamides; Z88.8 Allergy status to other drugs, medicaments and biological substances
CPT/HCPCS: 73610; 99212

== ENCOUNTER 2021-09-16 15:03 | Outpatient (REF) | payer MEDICARE, SELFPAY ==
--- NOTE | ~2021-09-16 | MM_ITS ---
EXAMINATION: BONE DENSITOMETRY CLINICAL INDICATION: Encounter for screening for osteoporosis. Asymptomatic menopausal state. Postmenopausal. COMPARISON: Baseline BD dated 08/28/2018. TECHNIQUE: Using a Light Chaser Animation DXA System (software version: 13.1) manufactured by [employer], dual-energy x-ray absorptiometry was performed of the lumbar spine and left hip. The images are of good technical quality. Summary results are attached. FINDINGS: AP SPINE L1-L4: Current: BMD 1.348 g/cm2, Z-score 1.3, T-score 1.4, normal, 2.6% decrease from baseline (<5% change is not significant). Baseline: BMD 1.384 g/cm2. LEFT FEMUR, NECK: Current: BMD 0.925 g/cm2, Z-score -0.4, T-score -0.8, normal. Baseline: BMD 1.041 g/cm2. LEFT FEMUR, TOTAL: Current: BMD 0.980 g/cm2, Z-score -0.2, T-score -0.2, normal, 11.1% decrease from baseline (<5% change is not significant). Baseline: BMD 1.102 g/cm2. IDENTIFIED RISK FACTORS: History of fracture, (adult). Menopause. Recurrent falls. Secondary osteoporosis, (part of stomach removed). HISTORY OF FRACTURE: Other fractures. MEDICATIONS: Calcium or multivitamin. MM/XR DEXA axial skeleton IMPRESSION: 1. DIAGNOSIS: Normal bone density based on the lowest T-score value of -0.8 in the femoral neck applying World Health Organization criteria. 2. 10-YEAR FRACTURE RISK PREDICTION, FRAX: Major osteoporotic fracture (clinical spine, forearm, hip or shoulder) 10.1%. Hip fracture 0.4%. 3. Treatment Recommendations: NOF guidelines recommend consideration for treatment in postmenopausal women and men age 50 and older presenting with the following: -A hip or vertebral (clinical or morphometric) fracture. -T-score less than or equal to -2.5 at the femoral neck or spine after appropriate evaluation to exclude secondary causes. -Low bone mass at the hip or spine and a 10-year fracture probability by FRAX of greater than or equal to 3% for hip fracture or greater than or equal to 20% for major osteoporotic fracture based on the [place] adapted WHO algorithm. 4. Other Recommendations: All treatment decisions require clinical judgment and consideration of individual patient factors, including patient preferences, comorbidities, previous drug use, risk factors not captured in the FRAX model (e.g. frailty, falls, vitamin D deficiency, increased bone turnover, interval significant decline in bone density) and possible under or overestimation of fracture risk by FRAX. FUTURE SCAN RECOMMENDATION: People with diagnosed cases of osteoporosis or at high risk for fracture should have regular bone mineral density tests. For patients eligible for Medicare, routine testing is allowed once every 2 years. The testing frequency can be increased to one year for patients who have rapidly progressing disease, those who are receiving or discontinuing medical therapy to restore bone mass, or have additional risk factors.
== END 2021-09-16 15:04 | disposition home or self-care (01) ==
LOC: HO.MAMMO 15:03
PROVIDERS: Visit Provider Hospitalist
DX: Z13.820 Encounter for screening for osteoporosis (principal); Z78.0 Asymptomatic menopausal state; Z79.899 Other long term (current) drug therapy
CPT/HCPCS: 77080

== ENCOUNTER 2021-09-20 15:11 | Outpatient (REF) | payer MEDICARE, SELFPAY ==
--- NOTE | ~2021-09-20 | MM_ITS ---
EXAMINATION: MM SCREENING DIGITAL BREAST TOMOSYNTHESIS, BILATERAL CLINICAL INFORMATION: Screening. Asymptomatic. Prior history reduction mammoplasty 04/23/2019. The lifetime risk of breast cancer based on the Tyrer-Cuzick Model is 10%. COMPARISON: Mammography: 08/03/2020, 07/29/2019, 07/23/2018 TECHNIQUE: Digital breast tomosynthesis is performed in both the craniocaudal and mediolateral oblique views along with computer-aided detection (CAD). Synthesized 2D images are generated from the tomosynthesis. FINDINGS: There are scattered areas of fibroglandular density (ACR BI-RADS breast composition Category b). There is minor bilateral scarring similar to prior exam consistent with the reduction mammoplasty. Smooth nodularity near the dermal surface posterior inferior left breast is stable. Nodularity posterior inferior right breast is decreased from prior exam. There is an oil cysts again suggested anterior 12:00 left breast. There is no significant mass or architectural abnormality or abnormal calcifications. No significant changes. MM/MM tomosynthesis screening BI IMPRESSION: No significant changes from prior exam. ASSESSMENT: BI-RADS 2: Benign RECOMMENDATION: Routine annual mammography screening. This patient's information was entered into a reminder system with a target due date for their next mammogram.
== END 2021-09-20 15:12 | disposition home or self-care (01) ==
LOC: HO.MAMMO 15:11
PROVIDERS: PCP Internal Medicine; Visit Provider Hospitalist
DX: Z12.31 Encounter for screening mammogram for malignant neoplasm of breast (principal)
CPT/HCPCS: 77063; 77067

== ENCOUNTER 2021-09-27 12:00 | Outpatient (REF) | payer MEDICARE, SELFPAY ==
--- NOTE | ~2021-09-27 | XR_ITS ---
EXAMINATION: XR ANKLE, LEFT CLINICAL INFORMATION: Fracture. COMPARISON: Previous exams most recent August 2021. TECHNIQUE: AP, lateral, and mortise views of the left ankle. FINDINGS: There are 2 screws in the medial malleolus. There is a plate and screws in the distal fibula. There is stabilization of the distal tibia and fibula. Orthopedic hardware appears unchanged. Fracture lines are no longer seen. The ankle mortise is normal. Soft tissues are normal. There are calcaneal spurs. XR/XR ankle LT min 3V IMPRESSION: ORIF of medial malleolar and distal fibular shaft fractures with continued healing.
== END 2021-09-27 12:01 | disposition home or self-care (01) ==
LOC: HO.HOSX 12:00
PROVIDERS: Visit Provider Physician Assistant
DX: M25.572 Pain in left ankle and joints of left foot (principal); Z98.890 Other specified postprocedural states; Z87.81 Personal history of (healed) traumatic fracture
CPT/HCPCS: 73610; 99212

== ENCOUNTER 2021-11-08 07:16 | Day surgery (SDC) | payer MEDICARE, SELFPAY ==
[2021-11-01 14:22] VITALS: BMI 38.2
--- NOTE | 2021-11-05 08:01 | MHC.SHP ---
Pre-Procedural Eval Section A Date of Service: 11/05/21 The patient is an INPATIENT: No Changes since office visit: No Cold of Flu in the past 2 weeks, No New Medical Problems, No Changes in Medication and No Patient answered all questions The History & Physical has been completed within 30 days and I have reviewed it.: Yes Section B Chief Complaint: Cataract Left eye Allergies: Allergies Allergy/AdvReac Type Severity Reaction Status Date / Time amoxicillin [From AUGMENTIN] Allergy Mild Rash Verified 09/27/21 15:08 azithromycin [AZITHROMYCIN] Allergy Mild Rash Verified 09/27/21 15:08 clarithromycin [From BIAXIN] Allergy Mild Rash Verified 09/27/21 15:08 clavulanic acid Allergy Mild Rash Verified 09/27/21 15:08 [From AUGMENTIN] doxycycline [DOXYCYCLINE] Allergy Mild Rash Verified 09/27/21 15:08 lidocaine [LIDOCAINE] Allergy Mild Rash Verified 09/27/21 15:08 sulfamethoxazole Allergy Mild Rash Verified 09/27/21 15:08 [From BACTRIM] trimethoprim [From BACTRIM] Allergy Mild Rash Verified 09/27/21 15:08 Plan Diagnosis/Plan: Unchanged I have reviewed the history and physical and performed a pertinent physical examination on my patient. No changes have occurred unless specified.
--- NOTE | 2021-11-05 09:49 | P.CONAN_ITS ---
Documented by User: Melanie Wright NP 11/05/21 09:51 HPI - Anesthesia Eval Consult details Narrative: 56yo F for Left Cataract Extraction IOL Insertion PCP cleared No previous cataract on record *Multiple Med Allergies* PMFSH Active Problems Active Problems: All Active Problems (Updated 11/01/21 @ 14:25 by Ruby Youngblood RN) Status post open reduction with internal fixation (ORIF) of fracture of ankle (Acute) Past Medical History Medical History Ankle fracture Closed left ankle fracture COVID-19 vaccine series completed Diabetes FH: cholecystectomy GERD (gastroesophageal reflux disease) HTN (hypertension) Polymyositis Sleep apnea Family History Family history of problems with anesthesia: No Surgical History Surgical History H/O colonoscopy History of carpal tunnel surgery History of cholecystectomy History of endometrial ablation History of gastric surgery History of open reduction and internal fixation (ORIF) procedure Hx of foot surgery Hx of myringotomy Status post breast reduction History of Problems with Anesthesia: Yes Social History Social History Household Members: Significant Other Housing: Apartment Are you a primary md do resident urgent care to a significant other at home: No Do you presently have visiting nurse or other home services: No Patient Tobacco Use Status: Former Tobacco user Quit Date: age 26 Tobacco use type: Cigarette e-Cigarette/Vaping Use: Never Used Second Hand Smoke Exposure: No Use of substances other than those prescribed or required for medical reasons: No Have you been hit, kicked, punched, or otherwise hurt by someone within the past year? If so, by whom?: No Are you DNR?: No Advance Directives: No Advance Directives Information Provided: Yes Advance Directives on File: No Recently lost weight without trying: No Eating poorly because of decreased appetite: No Nutrition Risks: No Nutritional Risk Poor oral hygiene: No (one missing tooth-has flipper ) service: No Current occupational status: unemployed Current occupation: rt handed Meds Allergies Allergy/AdvReac Type Severity Reaction Status Date / Time amoxicillin [From AUGMENTIN] Allergy Mild Rash Verified 09/27/21 15:08 azithromycin [AZITHROMYCIN] Allergy Mild Rash Verified 09/27/21 15:08 clarithromycin [From BIAXIN] Allergy Mild Rash Verified 02/14/22 15:08 clavulanic acid Allergy Mild Rash Verified 09/27/21 15:08 [From AUGMENTIN] doxycycline [DOXYCYCLINE] Allergy Mild Rash Verified 09/27/21 15:08 lidocaine [LIDOCAINE] Allergy Mild Rash Verified 09/27/21 15:08 sulfamethoxazole Allergy Mild Rash Verified 09/27/21 15:08 [From BACTRIM] trimethoprim [From BACTRIM] Allergy Mild Rash Verified 09/27/21 15:08 Home Medications Medication Instructions Recorded Confirmed Last Taken Type glipizide 5 mg tablet 1 tab PO DAILY 07/03/21 11/01/21 11/08/21 History liraglutide 0.6 mg/0.1 mL (18 mg/3 1.8 mg SUBCUT DAILY 07/03/21 11/01/21 11/08/21 History mL) subcutaneous pen injector ([employer] 3-Vinicius) losartan 50 mg tablet 1 tab PO BEDTIME 07/03/21 11/01/21 07/02/21 21:00 History omeprazole 40 mg capsule,delayed 1 cap PO BEDTIME 07/03/21 11/01/21 07/03/21 08:00 History release calcium citrate 200 mg (950 mg) 2 tab PO BEDTIME 07/04/21 11/01/21 Unknown History tablet multivitamin 1 tab PO QAM 07/04/21 11/01/21 Unknown History azathioprine 50 mg tablet 2 tab PO DAILY 11/01/21 11/01/21 Unknown History Exam Exam Date and Time: November 05, 2021 0949 Height,Weight and Vital Signs: Height 5 ft 5 in Weight 104.326 kg Pertinent Lab Results Pertinent Lab Results: Laboratory Tests 07/12/21 07/12/21 04:45 04:45 WBC 5.6 Hgb 11.4 L Hct 36.0 L Plt Count 254 Sodium 140 Potassium 4.1 Chloride 103 Carbon Dioxide 26 BUN 12 Creatinine 0.53 Assessment and Plan Assessment Anesthesia Assessment: Chart Reviewed Final Anesthetic Review Family History of Problems with Anesthesia: No History of Problems with Anesthesia: Yes Documented by User: Constance Garcia MD 11/08/21 09:00 [facility] Past Medical History Medical History Ankle fracture Closed left ankle fracture COVID-19 vaccine series completed Diabetes FH: cholecystectomy GERD (gastroesophageal reflux disease) HTN (hypertension) Polymyositis Sleep apnea Surgical History Surgical History H/O colonoscopy History of carpal tunnel surgery History of cholecystectomy History of endometrial ablation History of gastric surgery History of open reduction and internal fixation (ORIF) procedure Hx of foot surgery Hx of myringotomy Status post breast reduction Social History Social History Household Members: Significant Other Housing: Apartment Are you a primary md do resident urgent care to a significant other at home: No Do you presently have visiting nurse or other home services: No Patient Tobacco Use Status: Former Tobacco user Quit Date: age 26 Tobacco use type: Cigarette e-Cigarette/Vaping Use: Never Used Second Hand Smoke Exposure: No Use of substances other than those prescribed or required for medical reasons: No Have you been hit, kicked, punched, or otherwise hurt by someone within the past year? If so, by whom?: No Are you DNR?: No Advance Directives: No Advance Directives Information Provided: Yes Advance Directives on File: No Recently lost weight without trying: No Eating poorly because of decreased appetite: No Nutrition Risks: No Nutritional Risk Poor oral hygiene: No (one missing tooth-has flipper ) service: No Current occupational status: unemployed Current occupation: rt handed Meds Allergies Allergy/AdvReac Type Severity Reaction Status Date / Time amoxicillin [From AUGMENTIN] Allergy Mild Rash Verified 09/27/21 15:08 azithromycin [AZITHROMYCIN] Allergy Mild Rash Verified 09/27/21 15:08 clarithromycin [From BIAXIN] Allergy Mild Rash Verified 09/27/21 15:08 clavulanic acid Allergy Mild Rash Verified 09/27/21 15:08 [From AUGMENTIN] doxycycline [DOXYCYCLINE] Allergy Mild Rash Verified 09/27/21 15:08 lidocaine [LIDOCAINE] Allergy Mild Rash Verified 09/27/21 15:08 sulfamethoxazole Allergy Mild Rash Verified 09/27/21 15:08 [From BACTRIM] trimethoprim [From BACTRIM] Allergy Mild Rash Verified 09/27/21 15:08 Home Medications Medication Instructions Recorded Confirmed Last Taken Type glipizide 5 mg tablet 1 tab PO DAILY 07/03/21 11/01/21 11/08/21 History liraglutide 0.6 mg/0.1 mL (18 mg/3 1.8 mg SUBCUT DAILY 07/03/21 11/01/21 11/08/21 History mL) subcutaneous pen injector ([employer] 3-Vinicius) losartan 50 mg tablet 1 tab PO BEDTIME 07/03/21 11/01/21 07/02/21 21:00 History omeprazole 40 mg capsule,delayed 1 cap PO BEDTIME 07/03/21 11/01/21 07/03/21 08:00 History release calcium citrate 200 mg (950 mg) 2 tab PO BEDTIME 07/04/21 11/01/21 Unknown History tablet multivitamin 1 tab PO QAM 07/04/21 11/01/21 Unknown History azathioprine 50 mg tablet 2 tab PO DAILY 11/01/21 11/01/21 Unknown History Exam Airway Mallampati Class: II TM Dist: >3cm Neck ROM: Full Loose/Missing/Broken Teeth: Yes (Right lower molar area) Heart: RRR Lungs: CTA Assessment and Plan Assessment Anesthesia Assessment: Anesthesia Plan Discussed Final Anesthetic Review NPO: Yes ASA Class: III Final Preanesthetic Review: Meds/Allgs Chart Reviewed, Consent Obtained/Reviewed and Anes Risks/Benef Reviewed Patient Risk: Intermediate Procedure Risk: Low Anesthetic Plan Anesthetic Plan: MAC: Disposition: Standard PACU
[2021-11-08 07:49] VITALS: BP 157/82; PULSE 75; RESP 16; TEMP 36.8; O2SAT 99
[2021-11-08] MEDS: Tetracaine HCl/PF 0.5% Oph Sol 4 ML DROPS 1 DROP EYE-LEFT (07:59)
[2021-11-08] MEDS: Lactated Ringers 500 ML 50 ML IV (07:59)
[2021-11-08] MEDS: Tropicamide 1 % Ophth Sol 3 ML BTL 1 DROP EYE-LEFT ×3 (08:00→08:13)
[2021-11-08] MEDS: Phenylephrine HCL 2.5% Oph SoL 2 ML BOTTLE 1 DROP EYE-LEFT ×2 (08:04→08:11)
[2021-11-08 08:10] LABS: Glucose, Whole Blood 133 mg/dL (60-115)
--- NOTE | 2021-11-08 08:38 | OP_ITS ---
Ophthalmology Procedure Procedure Date of Service: 11/08/21 Ophthalmology Viscoelastic: Healon Duet Dual Pack Pro Ophthalmology Lenses: TECNIS [id number] (22.5) Procedure Notes: PREOPERATIVE DIAGNOSIS: Decreased visual acuity left eye secondary to cataract POSTOPERATIVE DIAGNOSIS: Same PROCEDURE: Left cataract extraction with intraocular lens insertion SURGEON: Mango Mccarty M.D. ANESTHESIA: Topical/MAC ESTIMATED BLOOD LOSS: None COMPLICATIONS: None After obtaining informed consent, the patient was brought to the operation room suite and placed in the supine position. After adequate sedation per anesthesia, topical drops of Tetracaine were given to the left eye. The eye was then prepped and draped in the usual sterile fashion. The operating room microscope was then positioned over the operative eye and a lid speculum placed. A paracentesis was created. Viscoelastic was then instilled into the anterior chamber. A three plane incision was then created temporally, utilizing a 2.85 mm keratome. Capsulotomy forceps were then utilized to create a circular tear capsulotomy. Hydrodissection and hydrodelineation were carried out until adequate mobilization of the nucleus occurred. Phacoemulsification was then utilized to remove the dense central nucleus followed by removal of the cortical material utilizing the automated aspiration irrigation unit. Viscoat elastic was instilled into the posterior capsular bag followed by placement of a posterior chamber intraocular lens without difficulty. The residual Viscoat elastic was then removed utilizing the automated IA machine. The wound was check and found to be watertight. The patient tolerated the procedure well and the lid speculum was removed. Intracameral injection of Vigamox 0.1 mL followed by a subtenon injection of Kenalog-40 0.2 mL were administered. The patient will be seen in the a.m. MTDD
[2021-11-08 09:09] VITALS: BP 133/81; PULSE 70; RESP 16; TEMP 36.7; O2SAT 97
== END 2021-11-08 09:20 | disposition home or self-care (01) ==
LOC: HO.SSS 07:17
PROVIDERS: PCP Internal Medicine; Visit Provider Ophthalmology
PROC: (CPT 66985; principal; 2021-11-08 08:40)
DX: H25.12 Age-related nuclear cataract, left eye (principal); H52.4 Presbyopia; I10 Essential (primary) hypertension; E11.9 Type 2 diabetes mellitus without complications; G47.33 Obstructive sleep apnea (adult) (pediatric); M33.20 Polymyositis, organ involvement unspecified; Z88.1 Allergy status to other antibiotic agents; Z87.891 Personal history of nicotine dependence; Z79.84 Long term (current) use of oral hypoglycemic drugs; Z79.899 Other long term (current) drug therapy
CPT/HCPCS: 66984; 82947; J2250; J3010; J3300; V2632

== ENCOUNTER 2021-11-22 07:38 | Day surgery (SDC) | payer OTHER, SELFPAY ==
[2021-11-01 14:31] VITALS: BMI 38.2
--- NOTE | 2021-11-18 11:38 | MHC.SHP ---
Pre-Procedural Eval Section A Date of Service: 11/18/21 The patient is an INPATIENT: No Changes since office visit: No Cold of Flu in the past 2 weeks, No New Medical Problems, No Changes in Medication and No Patient answered all questions The History & Physical has been completed within 30 days and I have reviewed it.: Yes Section B Chief Complaint: Cataract Right Eye Allergies: Allergies Allergy/AdvReac Type Severity Reaction Status Date / Time amoxicillin [From AUGMENTIN] Allergy Mild Rash Verified 09/27/21 15:08 azithromycin [AZITHROMYCIN] Allergy Mild Rash Verified 09/27/21 15:08 clarithromycin [From BIAXIN] Allergy Mild Rash Verified 09/27/21 15:08 clavulanic acid Allergy Mild Rash Verified 09/27/21 15:08 [From AUGMENTIN] doxycycline [DOXYCYCLINE] Allergy Mild Rash Verified 09/27/21 15:08 lidocaine [LIDOCAINE] Allergy Mild Rash Verified 09/27/21 15:08 sulfamethoxazole Allergy Mild Rash Verified 09/27/21 15:08 [From BACTRIM] trimethoprim [From BACTRIM] Allergy Mild Rash Verified 09/27/21 15:08 Plan Diagnosis/Plan: Unchanged I have reviewed the history and physical and performed a pertinent physical examination on my patient. No changes have occurred unless specified.
--- NOTE | 2021-11-18 15:11 | P.CONAN_ITS ---
Documented by User: Melanie Wright NP 11/18/21 15:12 HPI - Anesthesia Eval Consult details Narrative: 56yo M for Right Cataract Extraction IOL Insertion PCP cleared Left eye 11/08/21 with MAC: Fent 50, Midaz 2 *Multiple Med Allergies* PMFSH Active Problems Active Problems: All Active Problems (Updated 11/01/21 @ 14:25 by Ruby Youngblood RN) Status post open reduction with internal fixation (ORIF) of fracture of ankle (Acute) Past Medical History Medical History Ankle fracture Closed left ankle fracture COVID-19 vaccine series completed Diabetes FH: cholecystectomy GERD (gastroesophageal reflux disease) HTN (hypertension) Polymyositis Sleep apnea Family History Family history of problems with anesthesia: No Surgical History Surgical History H/O colonoscopy History of carpal tunnel surgery History of cholecystectomy History of endometrial ablation History of gastric surgery History of open reduction and internal fixation (ORIF) procedure Hx of foot surgery Hx of myringotomy Status post breast reduction History of Problems with Anesthesia: Yes Social History Social History Household Members: Significant Other Housing: Apartment Are you a primary child day care center worker to a significant other at home: No Do you presently have visiting nurse or other home services: No Patient Tobacco Use Status: Former Tobacco user Quit Date: age 26 Tobacco use type: Cigarette e-Cigarette/Vaping Use: Never Used Second Hand Smoke Exposure: No Use of substances other than those prescribed or required for medical reasons: No Have you been hit, kicked, punched, or otherwise hurt by someone within the past year? If so, by whom?: No Are you DNR?: No Advance Directives: No Advance Directives Information Provided: Yes Advance Directives on File: No Recently lost weight without trying: No Eating poorly because of decreased appetite: No Nutrition Risks: No Nutritional Risk Poor oral hygiene: No (one missing tooth-has flipper ) service: No Current occupational status: unemployed Current occupation: rt handed Meds Allergies Allergy/AdvReac Type Severity Reaction Status Date / Time amoxicillin [From AUGMENTIN] Allergy Mild Rash Verified 09/27/21 15:08 azithromycin [AZITHROMYCIN] Allergy Mild Rash Verified 09/27/21 15:08 clarithromycin [From BIAXIN] Allergy Mild Rash Verified 09/27/21 15:08 clavulanic acid Allergy Mild Rash Verified 09/27/21 15:08 [From AUGMENTIN] doxycycline [DOXYCYCLINE] Allergy Mild Rash Verified 09/27/21 15:08 lidocaine [LIDOCAINE] Allergy Mild Rash Verified 09/27/21 15:08 sulfamethoxazole Allergy Mild Rash Verified 09/27/21 15:08 [From BACTRIM] trimethoprim [From BACTRIM] Allergy Mild Rash Verified 09/27/21 15:08 Home Medications Medication Instructions Recorded Confirmed Last Taken Type glipizide 5 mg tablet 1 tab PO DAILY 07/03/21 11/01/21 11/22/21 History liraglutide 0.6 mg/0.1 mL (18 mg/3 1.8 mg SUBCUT DAILY 07/03/21 11/01/21 11/22/21 History mL) subcutaneous pen injector ([employer] 3-Vinicius) losartan 50 mg tablet 1 tab PO BEDTIME 07/03/21 11/01/21 07/02/21 21:00 History omeprazole 40 mg capsule,delayed 1 cap PO BEDTIME 07/03/21 11/01/21 07/03/21 08:00 History release calcium citrate 200 mg (950 mg) 2 tab PO BEDTIME 07/04/21 11/01/21 Unknown History tablet multivitamin 1 tab PO QAM 07/04/21 11/01/21 Unknown History azathioprine 50 mg tablet 2 tab PO DAILY 11/01/21 11/01/21 Unknown History Exam Exam Date and Time: November 18, 2021 1511 Height,Weight and Vital Signs: Height 5 ft 5 in Weight 104.326 kg Assessment and Plan Assessment Anesthesia Assessment: Chart Reviewed Final Anesthetic Review Family History of Problems with Anesthesia: No History of Problems with Anesthesia: Yes Documented by User: Gary Cotton MD 11/22/21 08:32 [facility] Past Medical History Medical History Ankle fracture Closed left ankle fracture COVID-19 vaccine series completed Diabetes FH: cholecystectomy GERD (gastroesophageal reflux disease) HTN (hypertension) Polymyositis Sleep apnea Surgical History Surgical History H/O colonoscopy History of carpal tunnel surgery History of cholecystectomy History of endometrial ablation History of gastric surgery History of open reduction and internal fixation (ORIF) procedure Hx of foot surgery Hx of myringotomy Status post breast reduction Social History Social History Household Members: Significant Other Housing: Apartment Are you a primary child day care center worker to a significant other at home: No Do you presently have visiting nurse or other home services: No Patient Tobacco Use Status: Former Tobacco user Quit Date: age 26 Tobacco use type: Cigarette e-Cigarette/Vaping Use: Never Used Second Hand Smoke Exposure: No Use of substances other than those prescribed or required for medical reasons: No Have you been hit, kicked, punched, or otherwise hurt by someone within the past year? If so, by whom?: No Are you DNR?: No Advance Directives: No Advance Directives Information Provided: Yes Advance Directives on File: No Recently lost weight without trying: No Eating poorly because of decreased appetite: No Nutrition Risks: No Nutritional Risk Poor oral hygiene: No (one missing tooth-has flipper ) service: No Current occupational status: unemployed Current occupation: rt handed Meds Allergies Allergy/AdvReac Type Severity Reaction Status Date / Time amoxicillin [From AUGMENTIN] Allergy Mild Rash Verified 09/27/21 15:08 azithromycin [AZITHROMYCIN] Allergy Mild Rash Verified 09/27/21 15:08 clarithromycin [From BIAXIN] Allergy Mild Rash Verified 09/27/21 15:08 clavulanic acid Allergy Mild Rash Verified 09/27/21 15:08 [From AUGMENTIN] doxycycline [DOXYCYCLINE] Allergy Mild Rash Verified 09/27/21 15:08 lidocaine [LIDOCAINE] Allergy Mild Rash Verified 09/27/21 15:08 sulfamethoxazole Allergy Mild Rash Verified 09/27/21 15:08 [From BACTRIM] trimethoprim [From BACTRIM] Allergy Mild Rash Verified 09/27/21 15:08 Home Medications Medication Instructions Recorded Confirmed Last Taken Type glipizide 5 mg tablet 1 tab PO DAILY 07/03/21 11/01/21 11/22/21 History liraglutide 0.6 mg/0.1 mL (18 mg/3 1.8 mg SUBCUT DAILY 07/03/21 11/01/21 11/22/21 History mL) subcutaneous pen injector ([employer] 3-Vinicius) losartan 50 mg tablet 1 tab PO BEDTIME 07/03/21 11/01/21 07/02/21 21:00 History omeprazole 40 mg capsule,delayed 1 cap PO BEDTIME 07/03/21 11/01/21 07/03/21 08:00 History release calcium citrate 200 mg (950 mg) 2 tab PO BEDTIME 07/04/21 11/01/21 Unknown History tablet multivitamin 1 tab PO QAM 07/04/21 11/01/21 Unknown History azathioprine 50 mg tablet 2 tab PO DAILY 11/01/21 11/01/21 Unknown History Exam Airway Mallampati Class: II TM Dist: >3cm Neck ROM: Full Loose/Missing/Broken Teeth: No Heart: [id number] Lungs: cta b/l Assessment and Plan Assessment Anesthesia Assessment: Anesthesia Plan Discussed Final Anesthetic Review NPO: Yes ASA Class: II Final Preanesthetic Review: No Changes in Pt Med Stat, Meds/Allgs Chart Reviewed, Consent Obtained/Reviewed and Anes Risks/Benef Reviewed Patient Risk: Intermediate Procedure Risk: Low Assessment/Block/Sedation in SS: Assess/Block/Sedation-SS Anesthetic Plan Anesthetic Plan: MAC: and Agree w/ Assess. and Plan Disposition: Standard PACU
[2021-11-22 07:56] VITALS: BP 145/61; PULSE 77; RESP 16; TEMP 36.9; O2SAT 97
[2021-11-22] MEDS: Tetracaine HCl/PF 0.5% Oph Sol 4 ML DROPS 1 DROP EYE-RIGHT (08:05)
[2021-11-22] MEDS: Tropicamide 1 % Ophth Sol 3 ML BTL 1 DROP EYE-RIGHT ×3 (08:06→08:19)
[2021-11-22] MEDS: Phenylephrine HCL 2.5% Oph SoL 2 ML BOTTLE 1 DROP EYE-RIGHT ×3 (08:08→08:23)
[2021-11-22 08:14] LABS: Glucose, Whole Blood 158 mg/dL (60-115)
[2021-11-22] MEDS: Lactated Ringers 500 ML 50 ML IV (08:19)
--- NOTE | 2021-11-22 08:35 | HO.PNOPHT ---
Ophthalmology Procedure Procedure Date of Service: 11/22/21 Ophthalmology Viscoelastic: Richa Martint Dual Pack Pro Ophthalmology Lenses: TECGAYLA [id number] (23) Procedure Notes: PREOPERATIVE DIAGNOSIS: Decreased visual acuity right eye secondary to cataract POSTOPERATIVE DIAGNOSIS: Same PROCEDURE: Right cataract extraction with intraocular lens insertion SURGEON: Mango Mccarty M.D. ANESTHESIA: Topical/MAC ESTIMATED BLOOD LOSS: None COMPLICATIONS: None After obtaining informed consent, the patient was brought to the operating room suite and placed in the supine position. After adequate sedation per anesthesia, topical drops of Tetracaine were given to the right eye. The eye was then prepped and draped in the usual sterile fashion. The operating room microscope was then positioned over the operative eye and a lid speculum placed. A paracentesis was created. Viscoelastic was then instilled into the anterior chamber. A three plane incision was then created temporally, utilizing a 2.85 mm keratome. Capsulotomy forceps were then utilized to create a circular tear capsulotomy. Hydrodissection and hydrodelineation were carried out until adequate mobilization of the nucleus occurred. Phacoemulsification was then utilized to remove the dense central nucleus followed by removal of the cortical material utilizing the automated aspiration irrigation unit. Viscoelastic was instilled into the posterior capsular bag followed by placement of a posterior chamber intraocular lens without difficulty. The residual Viscoelastic was then removed utilizing the automated IA machine. The wound was checked and found to be watertight. The patient tolerated the procedure well and the lid speculum was removed. Intracameral injection of Vigamox 0.1 mL followed by a subtenon injection of Kenalog-40 0.2 mL were administered. The patient will be seen in the a.m.
[2021-11-22 09:01] VITALS: BP 137/67; PULSE 71; RESP 18; TEMP 36.2; O2SAT 97
== END 2021-11-22 09:11 ==
LOC: HO.SSS 07:39
PROVIDERS: PCP Internal Medicine; Visit Provider Ophthalmology
PROC: (CPT 66985; principal; 2021-11-22 08:40)
DX: H25.11 Age-related nuclear cataract, right eye (principal); E11.9 Type 2 diabetes mellitus without complications; I10 Essential (primary) hypertension; Z79.84 Long term (current) use of oral hypoglycemic drugs; Z79.899 Other long term (current) drug therapy; Z88.0 Allergy status to penicillin; Z88.2 Allergy status to sulfonamides; Z88.8 Allergy status to other drugs, medicaments and biological substances
CPT/HCPCS: 66984; 82947; J2250; J3010; J3300; V2632

== ENCOUNTER 2022-06-24 12:41 | Outpatient (REF) | payer OTHER, SELFPAY ==
--- NOTE | ~2022-06-24 | XR_ITS ---
EXAMINATION: XR ANKLE, LEFT CLINICAL INFORMATION: Left ankle pain. COMPARISON: 09/27/2021. TECHNIQUE: AP, lateral, and mortise views of the left ankle. FINDINGS: Again seen are 2 screws in the medial malleolus and a plate and screw device along the distal tibia. A ghost track from a screw which passed through the stabilization plate and through the fibula and tibia is seen with the very distal end of the screw and the screw head still visible. No interval change when compared to the prior study. Degenerative changes are seen in the hindfoot unchanged from prior. Calcaneal spurs are again seen. XR/XR ankle LT min 3V IMPRESSION: No significant interval change when compared to the prior study. Postoperative changes as described above with degenerative changes in the hindfoot.
== END 2022-06-24 12:42 | disposition home or self-care (01) ==
LOC: HO.HOSX 12:41
PROVIDERS: Visit Provider Physician Assistant
DX: M25.572 Pain in left ankle and joints of left foot (principal); Z98.890 Other specified postprocedural states; Z87.81 Personal history of (healed) traumatic fracture
CPT/HCPCS: 73610; 99212

== ENCOUNTER 2022-08-26 13:18 | Outpatient (REF) | payer OTHER, SELFPAY ==
--- NOTE | ~2022-08-26 | MM_ITS ---
EXAMINATION: MM DIAGNOSTIC DIGITAL BREAST TOMOSYNTHESIS, BILATERAL. US TARGETED BREAST, LEFT CLINICAL INFORMATION: Left breast swelling and redness for 2 weeks. Status post previous breast reduction surgery. The lifetime risk of breast cancer based on the Tyrer-Cuzick Model is 9.9%. COMPARISON: Mammography: 09/20/2021 and studies dating back to 06/30/2014. TECHNIQUE: Digital breast tomosynthesis is performed in both the craniocaudal and mediolateral oblique views along with computer-aided detection (CAD). Synthesized 2-D images are generated from the tomosynthesis. Targeted left breast ultrasound. FINDINGS: There are scattered areas of fibroglandular density (ACR BI-RADS breast composition Category b). There is a stable proximal pattern of the right breast with no new abnormal dominant mass or suspicious grouping of microcalcifications. There is some fat sclerosis present from previous surgery anteriorly within the left breast. In the region of palpable abnormality about the 6 o'clock location of the deep left breast, there is an ill-defined density measuring approximately 4.2 x 3.1 cm in size. No associated microcalcifications are present. This is involving the inferior skin. ULTRASOUND: Targeted left breast ultrasound demonstrated thickening of the dermis with edematous change. There is a region of diminished density with some increased through sound transmission about the 6 o'clock location which has some circumferential hyperemia present measuring approximately 3 cm in length and 2 mm in width. No significant abscess collection to drain is identified. Results are discussed with the patient at time of visit. MM/MM tomosynthesis diagnostic BI IMPRESSION: Region of dermal thickening with edema and small amount of fluid with hyperemia consistent with an infectious/inflammatory process. Recommend clinical followup after treatment for possible infectious etiology. If the skin process does not resolve, then skin punch biopsy may be entertained. ASSESSMENT: BI-RADS 3: Probably Benign. RECOMMENDATION: 1. Patient should be managed based on the clinical impression. Decision to proceed with biopsy should be based on clinical grounds and degree of clinical concern. 2. Otherwise, routine annual screening mammography. This patient's information was entered into a reminder system with a target due date for their next mammogram.
== END 2022-08-26 13:19 | disposition home or self-care (01) ==
LOC: HO.MAMMO 13:18
PROVIDERS: PCP Internal Medicine; Visit Provider Surgery Surgical Oncology
DX: N64.89 Other specified disorders of breast (principal)
CPT/HCPCS: 76642; 77062; 77066

== ENCOUNTER 2022-09-28 16:58 | Outpatient (REF) | payer OTHER, SELFPAY ==
--- NOTE | ~2022-09-28 | XR_ITS ---
EXAMINATION: XR BILATERAL KNEES CLINICAL INFORMATION: Reason for Exam M25.561 - Pain in right knee COMPARISON: Knee radiographs 07/07/2021 TECHNIQUE: One view of the bilateral knees standing and 2 views of each knee. FINDINGS: RIGHT KNEE: No acute fracture or dislocation. Moderate degenerative changes of the knee with loss of medial compartment joint space and medial and patellofemoral compartment osteophytes. Trace suprapatellar joint effusion. Soft tissues are unremarkable. LEFT KNEE: No acute fracture or dislocation. Well corticated calcification is noted adjacent to the left medial and lateral femoral condyles may reflect sequelae of remote avulsion injury. Moderate degenerative changes of the knee with loss of medial compartment joint space and small patellofemoral and medial compartment osteophytes. No joint effusion. Soft tissues are unremarkable. XR/XR knee LT 2V IMPRESSION: * No acute osseous abnormality. * Moderate degenerative changes of the knees. Trace right suprapatellar joint effusion. * Well corticated calcification is noted adjacent to the left medial and lateral femoral condyles may reflect sequelae of remote avulsion injury.
--- NOTE | ~2022-09-28 | XR_ITS ---
EXAMINATION: XR BILATERAL KNEES CLINICAL INFORMATION: Reason for Exam M25.561 - Pain in right knee COMPARISON: Knee radiographs 07/07/2021 TECHNIQUE: One view of the bilateral knees standing and 2 views of each knee. FINDINGS: RIGHT KNEE: No acute fracture or dislocation. Moderate degenerative changes of the knee with loss of medial compartment joint space and medial and patellofemoral compartment osteophytes. Trace suprapatellar joint effusion. Soft tissues are unremarkable. LEFT KNEE: No acute fracture or dislocation. Well corticated calcification is noted adjacent to the left medial and lateral femoral condyles may reflect sequelae of remote avulsion injury. Moderate degenerative changes of the knee with loss of medial compartment joint space and small patellofemoral and medial compartment osteophytes. No joint effusion. Soft tissues are unremarkable. XR/XR knee standing BI IMPRESSION: * No acute osseous abnormality. * Moderate degenerative changes of the knees. Trace right suprapatellar joint effusion. * Well corticated calcification is noted adjacent to the left medial and lateral femoral condyles may reflect sequelae of remote avulsion injury.
--- NOTE | ~2022-09-28 | XR_ITS ---
EXAMINATION: XR BILATERAL KNEES CLINICAL INFORMATION: Reason for Exam M25.561 - Pain in right knee COMPARISON: Knee radiographs 07/07/2021 TECHNIQUE: One view of the bilateral knees standing and 2 views of each knee. FINDINGS: RIGHT KNEE: No acute fracture or dislocation. Moderate degenerative changes of the knee with loss of medial compartment joint space and medial and patellofemoral compartment osteophytes. Trace suprapatellar joint effusion. Soft tissues are unremarkable. LEFT KNEE: No acute fracture or dislocation. Well corticated calcification is noted adjacent to the left medial and lateral femoral condyles may reflect sequelae of remote avulsion injury. Moderate degenerative changes of the knee with loss of medial compartment joint space and small patellofemoral and medial compartment osteophytes. No joint effusion. Soft tissues are unremarkable. XR/XR knee RT 2V IMPRESSION: * No acute osseous abnormality. * Moderate degenerative changes of the knees. Trace right suprapatellar joint effusion. * Well corticated calcification is noted adjacent to the left medial and lateral femoral condyles may reflect sequelae of remote avulsion injury.
== END 2022-09-28 16:59 | disposition home or self-care (01) ==
LOC: HO.HOSX 16:58
PROVIDERS: Visit Provider Physician Assistant
DX: M17.0 Bilateral primary osteoarthritis of knee (principal); M33.20 Polymyositis, organ involvement unspecified
CPT/HCPCS: 73560; 73565; 99212

== ENCOUNTER 2022-10-31 13:56 | Outpatient (REF) | payer OTHER, SELFPAY ==
--- NOTE | ~2022-10-31 | MR_ITS ---
EXAMINATION: MR KNEE WITHOUT CONTRAST, LEFT CLINICAL INFORMATION: Primary osteoarthritis of the knee. COMPARISON: X-ray of the left knee September 2022 and June 2021. TECHNIQUE: MRI of the knee without contrast was performed using routine sequences on a high-field scanner. FINDINGS: MENISCI: Medial Meniscus: Intact. Lateral Meniscus: Intact. LIGAMENTS: Cruciate: Intact. Collateral: MCL: There is thickening and slight irregularity of the medial collateral ligament particularly at the femoral attachment. Findings indicative of a partial tear likely subacute. This corresponds to the area of calcification on x-ray. Lateral Ligament: Intact. EXTENSOR MECHANISM: Intact. ARTICULAR CARTILAGE/BONE: Patellofemoral Compartment: Normal. Medial Compartment: Minimal marginal osteophytes about the medial femoral condyle and minimal cartilage heterogeneity. Overall minimal arthrosis. Lateral Compartment: Normal. JOINT FLUID AND BURSAE: Mild effusion. MR/MR knee LT wo con IMPRESSION: 1. Partial tear of the medial collateral ligament, likely subacute. 2. Minimal arthrosis of the medial compartment. 3. Mild effusion.
== END 2022-10-31 13:57 | disposition home or self-care (01) ==
LOC: HO.MRI 13:56
PROVIDERS: Visit Provider Physician Assistant
DX: M17.0 Bilateral primary osteoarthritis of knee (principal)
CPT/HCPCS: 73721

== ENCOUNTER → 2022-11-10 15:34 | Outpatient (BNVA) | payer OTHER, MEDICAID, SELFPAY | PROVIDERS: Visit Provider Physician Assistant | DX: M17.12 Unilateral primary osteoarthritis, left knee (principal); M25.562 Pain in left knee | CPT/HCPCS: 99212 ==

== ENCOUNTER 2023-03-02 14:51 | Outpatient (REF) | payer SELFPAY | END 2023-03-02 14:52 | disposition home or self-care (01) | LOC: HO.HAP 14:51 | PROVIDERS: Visit Provider Internal Medicine | DX: Z46.1 Encounter for fitting and adjustment of hearing aid (principal); H90.3 Sensorineural hearing loss, bilateral | CPT/HCPCS: V5267 ==

== ENCOUNTER 2023-08-28 13:11 | Outpatient (REF) | payer OTHER, SELFPAY ==
--- NOTE | ~2023-08-28 | MM_ITS ---
EXAMINATION: MM SCREENING DIGITAL BREAST TOMOSYNTHESIS, BILATERAL CLINICAL INFORMATION: Screening. Asymptomatic. The patient is status post bilateral breast reduction. COMPARISON: Mammography: This study is compared with prior exams dating back to 2019. TECHNIQUE: Digital breast tomosynthesis is performed in both the craniocaudal and mediolateral oblique views along with computer-aided detection (CAD). Synthesized 2D images are generated from the tomosynthesis. FINDINGS: There are scattered areas of fibroglandular density (ACR BI-RADS breast composition Category b). There are no significant masses, abnormal calcifications, or other abnormalities. Post reduction changes are present. MM/MM tomosynthesis screening BI IMPRESSION: No mammographic evidence of malignancy. ASSESSMENT: BI-RADS BI-RADS 2 - Benign Findings RECOMMENDATION: Routine annual mammography screening. 1 year F/U This examination should not preclude the clinical evaluation of a suspicious palpable abnormality. This patient's information was entered into a reminder system with a target due date for their next mammogram.
== END 2023-08-28 13:12 | disposition home or self-care (01) ==
LOC: HO.MAMMO 13:11
PROVIDERS: PCP Internal Medicine; Visit Provider Internal Medicine
DX: Z12.31 Encounter for screening mammogram for malignant neoplasm of breast (principal)
CPT/HCPCS: 77063; 77067

== ENCOUNTER → 2023-08-28 13:15 | Outpatient (BNV) | payer OTHER, SELFPAY | PROVIDERS: PCP Internal Medicine; Visit Provider Radiology Diagnostic Radiology | DX: Z12.31 Encounter for screening mammogram for malignant neoplasm of breast (principal) | CPT/HCPCS: 77063; 77067 ==

== ENCOUNTER → 2024-07-12 18:00 | Outpatient (BNV) | payer OTHER, SELFPAY | PROVIDERS: Emergency Provider Emergency Medicine; PCP Internal Medicine; Visit Provider Internal Medicine | DX: R07.9 Chest pain, unspecified (principal); R00.1 Bradycardia, unspecified; R94.31 Abnormal electrocardiogram [ECG] [EKG] | CPT/HCPCS: 93010 ==

== ENCOUNTER 2024-07-12 18:01 | Emergency (ER) | payer OTHER, SELFPAY ==
--- NOTE | 2024-07-12 | ECG_ITS ---
Test Reason : CP Blood Pressure : / mmHG Vent. Rate : 059 BPM Atrial Rate : 059 BPM P-R Int : 188 ms QRS Dur : 084 ms QT Int : 452 ms P-R-T Axes : 108 -21 073 degrees QTc Int : 447 ms Sinus bradycardia Nonspecific ST and T wave abnormality Borderline ECG When compared with ECG of 24-NOV-2011 08:07, No significant change was found Referred By: Generic ED Physician Electronically Signed By:LINCOLN ALMARAZ
--- NOTE | ~2024-07-12 | XR_ITS ---
EXAMINATION: XR CHEST CLINICAL INFORMATION: CP COMPARISON: None available. TECHNIQUE: 2 views of the chest were obtained. FINDINGS: The cardiomediastinal silhouette is within normal limits. The lungs are well expanded. There is no focal consolidation, edema, or effusion. No pneumothorax. No acute osseous abnormality. Multilevel thoracic spine degeneration XR/XR chest 2V IMPRESSION: No evidence of acute pulmonary process. Electronically signed by: Emmanuel Linda MD 07/12/2024 08:16 PM [facility]
[2024-07-12 18:59] VITALS: BP 132/81; PULSE 66; RESP 16; TEMP 36.4; O2SAT 99; BMI 36.6
--- NOTE | 2024-07-12 18:59 | ED.CHESTPAIN ---
HPI - Chest Pain General Chief Complaint: Chest Pain Stated Complaint: Chest pain Time Seen by Provider: 07/12/24 19:40 Source: patient and RN notes reviewed Mode of arrival: ambulatory Limitations: no limitations History of Present Illness ED Provider: Chapito BLOCK narrative: 58 old female with past medical history significant for polymyositis, diabetes, hypertension, status post gastric sleeve presents for evaluation of chest pain. She endorses a 2 day history of midsternal chest pain that does not radiate. She describes the pain as burning. The pain is present when she is resting. The pain improves when she gets up and walks. She states that if she turns the wrong way she will feel the pain The pain is a 3/10 and constant. She reports a family history of coronary artery disease Denies any fevers, chills, shortness of breath pain The patient reports that she has had some palpitations She reports that her primary doctor has been changing her blood pressure medications. About a month ago she was put on valsartan and then 6 days ago this is switch to carvedilol The patient thinks that her blood pressure has been elevated due to this Related Data Home Medications ?Medication ?Instructions ?Recorded ?Confirmed glipizide 5 mg tablet 1 tab PO DAILY 07/03/21 11/01/21 liraglutide 0.6 mg/0.1 mL (18 mg/3 1.8 mg subcut DAILY 07/03/21 11/01/21 mL) subcutaneous pen injector (Victoza 3-Vinicius) losartan 50 mg tablet 1 tab PO BEDTIME 07/03/21 11/01/21 omeprazole 40 mg capsule,delayed 1 cap PO BEDTIME 07/03/21 11/01/21 release calcium citrate 2 tab PO BEDTIME 07/04/21 11/01/21 multivitamin 1 tab PO QAM 07/04/21 11/01/21 azathioprine 100 mg tablet 100 mg PO DAILY 06/24/22 azathioprine 50 mg tablet 50 mg PO DAILY 06/24/22 Previous Rx's ?Medication ?Instructions ?Recorded lorazepam 0.5 mg tablet 0.5 mg PO DAILY PRN anxiety #3 tabs 10/10/22 meloxicam 15 mg tablet 15 mg PO DAILY 30 days #30 tabs 11/10/22 Allergies Allergy/AdvReac Type Severity Reaction Status Date / Time amoxicillin [From AUGMENTIN] Allergy Mild Rash Verified 07/12/24 19:02 azithromycin [AZITHROMYCIN] Allergy Mild Rash Verified 07/12/24 19:02 clarithromycin [From BIAXIN] Allergy Mild Rash Verified 07/12/24 19:02 clavulanic acid Allergy Mild Rash Verified 07/12/24 19:02 [From AUGMENTIN] doxycycline [DOXYCYCLINE] Allergy Mild Rash Verified 07/12/24 19:02 lidocaine [LIDOCAINE] Allergy Mild Rash Verified 07/12/24 19:02 sulfamethoxazole Allergy Mild Rash Verified 07/12/24 19:02 [From BACTRIM] trimethoprim [From BACTRIM] Allergy Mild Rash Verified 07/12/24 19:02 Review of Systems Constitutional: Constitutional: Denies body ache(s), Denies chills, Denies fever(s), Denies frequent falls and Denies headache(s) Eyes: Eyes: Denies dry eyes and Denies floaters ENT: Denies vertigo, Denies dizziness and Denies headache(s) Cardiovascular: Cardiovascular: Reports chest pain, Denies chest pain at rest, Reports rapid heart rate, Reports lightheadedness, Reports palpitations and Denies dyspnea Respiratory: Respiratory: Denies cough and Denies dyspnea Gastrointestinal: Gastrointestinal: Denies abdominal pain, Denies nausea and Denies vomiting Musculoskeletal: Musculoskeletal: Denies back pain Integumentary/Breasts: Skin/Breast: Denies rash Neurologic: Denies vertigo, Denies dizziness, Denies frequent falls and Denies headache(s) Endocrine: Endocrine: Reports palpitations PMFSH Past Medical History Medical History Ankle fracture Closed left ankle fracture COVID-19 vaccine series completed Diabetes FH: cholecystectomy GERD (gastroesophageal reflux disease) HTN (hypertension) Polymyositis Sleep apnea Surgical History H/O colonoscopy History of carpal tunnel surgery History of cholecystectomy History of endometrial ablation History of gastric surgery History of open reduction and internal fixation (ORIF) procedure Hx of foot surgery Hx of myringotomy Status post breast reduction Social History Social History Household Members: Significant Other Housing: Apartment Are you a primary housekeeper child care to a significant other at home: No Do you presently have visiting nurse or other home services: No Alcohol intake: never Comment: uses trekking pole for stability since ankle fracture 06/2021 Patient Tobacco Use Status: Former Tobacco user Tobacco use type: Cigarette Smoked in Last 30 Days: No e-Cigarette/Vaping Use: Never Used Second Hand Smoke Exposure: No Use of substances other than those prescribed or required for medical reasons: Yes Substance Use Type: Marijuana Advance Directives: No Advance Directives Information Provided: No Patient : No service: No Current occupational status: unemployed Current occupation: rt handed Physical Exam Vital Signs: Vital Signs: Last Vital Signs Temp 98.7 F 07/12/24 22:00 Pulse 60 07/12/24 22:00 Resp 20 07/12/24 22:00 BP 147/77 H 07/12/24 22:00 Pulse Ox 99 07/12/24 22:00 O2 Del Method Room Air 07/12/24 22:00 BMI result Body Mass Index 36.6 Const: General: healthy appearing, comfortable, no acute distress, alert and awake Nutritional Appearance: well nourished Orientation/consciousness: patient oriented x3 HEENT: Head: Yes normocephalic and Yes atraumatic Eyes: Eyelids: Yes eyelids normal Conjunctivae: conjunctivae normal Sclerae: sclerae normal Corneas: corneas normal Pupils: Equal, round and reactive pupils present EOM: EOMs intact bilaterally Neck: Neck: Yes full ROM Resp: Effort & Inspection: normal respiratory effort, able to speak in complete sentences and not labored Cardio: Rate: regular rate Rhythm: regular rhythm GI: Inspection: No distended Palpation (GI): Soft to palpation, not firm, nontender, no guarding and not rigid Skin: General skin exam: elasticity normal Neuro: General: patient oriented x3 Cranial nerves: Yes Equal, round and reactive pupils present and Yes Bilaterally intact EOM present Cognition (Neuro): normal cognition Course Course Course Narrative: This is an RME: Additional HPI, ROS, PE not included below will be deferred to primary provider. RME assessment and note performed by: Taylor Fletcher PA-C This is a [id number] who presents to the ER with a complaint of chest pain x 2 days. Pain is intermittent, also reports palpitations. The reports that the pain is midsternal, and lasts for several seconds and resolves on its own. Pain does not radiate. He has also been taking blood pressures throughout the day, states that there has been times that her pulse is high 120s to 140s. She also states that her blood pressure has been running high, she showed me a list of her blood pressure readings, 150s over 90s which is very high for me Plan: Labs, EKG, chest x-ray, further ER evaluation needed Medical Decision Making Medical Decision Making [facility] Narrative: [age] old female with past medical history as documented above presents for evaluation of chest pain. Her pain has been present for 2 days. Her EKG is sinus bradycardia without ischemic changes. Her initial troponin was slightly elevated to 23.9, a repeat troponin was ordered. This decreased down to 8 and the patient rules out for ACS. The rest of her workup was reassuring. The patient was slightly hypertensive as high as 172/69. This is likely due to the manipulation of the patient's home blood pressure medications. Her blood pressure improved to 147/77 without any intervention. I will not change her antihypertensive medications any further. She will follow up with the PCP and be referred to Cardiology Differential Diagnosis Differential Diagnoses: The differential diagnosis associated with the presentation includes Atypical chest pain ACS less likely Hypertension Costochondritis Chest wall pain Admission/Observation Consideration of admission/observation: Escalation of care including admission/observation considered Considered admission due to chest pain with an initially elevated troponin but the patient ruled out for ACS with a normal EKG and a repeat troponin that was decreasing Lab Data [facility] Lab Attestation statement: I reviewed the patient's lab results. No leukocytosis or anemia. Normal platelet count. No electrolyte abnormalities. Initial troponin is slightly elevated, repeat troponin within normal limits 07/12/24 19:59 07/12/24 19:59 Labs: Lab Results 07/12/24 07/12/24 07/12/24 Range/Units 19:58 19:59 22:09 WBC 4.2 L (4.8-10.8) X10*3/uL RBC 4.36 (4.20-5.50) X10*6/uL Hgb 13.5 (12.0-16.0) g/dl Hct 40.6 (37.0-47.0) % MCV 93.1 (80.0-98.0) fL MCH 31.0 (27.0-33.0) pg MCHC 33.3 (31.0-35.0) g/dl RDW 14.1 (11.0-16.0) % Plt Count 206 (160-400) X10*3/uL MPV 10.2 (9.4-12.3) fL Immature Gran % (Auto) 0.2 (0.0-0.4) % Neut % (Auto) 59.9 (45-73) % Lymph % (Auto) 25.7 (20-40) % [place] % (Auto) 9.1 (2-11) % Eos % (Auto) 4.1 H (0-4) % Baso % (Auto) 1.0 (0-2) % Lymph # (Auto) 1.1 L (1.2-4.9) X10*3/uL [place] # (Auto) 0.4 (0.1-1.2) X10*3/uL Eos # (Auto) 0.2 (0.0-0.4) X10*3/uL Baso # (Auto) 0.0 (0.0-0.2) X10*3/uL Abs Immat Gran (auto) 0.01 (0.00-0.03) X10*3/uL Absolute Neuts (auto) 2.5 (2.0-8.3) x10*3/uL Absolute Nucleated RBC 0.000 (0.0-0.012) X10*3/uL Nucleated RBC % (auto) 0.0 (0.0-0.2) /100WBC PT 10.4 L (10.9-12.4) SEC INR 0.9 (0.9-1.1) Sodium 143 (135-145) mmol/L Potassium 3.8 (3.3-5.1) mmol/L Chloride 109 H (96-108) mmol/L Carbon Dioxide 25 (22-29) mmol/L Anion Gap 13 (12-20) BUN 9 (9-16) mg/dL Creatinine 0.52 (0.5-1.4) mg/dL Estim Creat Clear Calc 134.6 Estimated GFR > 60 Random Glucose 108 (60-115) mg/dL Calcium 9.2 (8.4-10.2) mg/dL Magnesium 2.2 (1.6-2.6) mg/dL Total Bilirubin 1.2 H (0.0-1.0) mg/dL Direct Bilirubin 0.4 (0.0-0.5) mg/dL AST 45 H (5-31) U/L ALT 35 H (0-31) U/L Alkaline Phosphatase 83 (39-117) U/L Troponin I High Sens 23.6 H 8.3 D (<3.5-17.0) ng/L B-Natriuretic Peptide 78 (<100) pg/mL Total Protein 6.5 (6.5-8.0) g/dL Albumin 3.9 (3.5-5.0) g/dL Lipase 10 (8-78) U/L TSH 1.63 (0.32-4.0) uIU/mL Influenza Type A (PCR) NEGATIVE (Negative) Influenza Type B (PCR) NEGATIVE (Negative) RSV RNA Qual (PCR) NEGATIVE (Negative) SARS-CoV-2 RNA (RT-PCR) NEGATIVE (Negative) Independent Interpretation I performed an independent interpretation of an: EKG (Sinus bradycardia without ischemic changes) Radiology Impression Discussion of test interpretation with radiology: I have reviewed the radiologist's reading. Radiologist Impression: COMPARISON: None available. TECHNIQUE: 2 views of the chest were obtained. FINDINGS: The cardiomediastinal silhouette is within normal limits. The lungs are well expanded. There is no focal consolidation, edema, or effusion. No pneumothorax. No acute osseous abnormality. Multilevel thoracic spine degeneration XR/XR chest 2V IMPRESSION: No evidence of acute pulmonary process. Electronically signed by: Emmanuel Linda MD 07/12/2024 08:16 PM [facility] Discharge Plan Discharge Clinical Impression: Chest pain Patient Disposition: Home, Self-Care Instructions: Chest Pain (ED) Additional Instructions: Your workup in the ER today was reassuring. Your 1st troponin was just above normal, but you are repeat troponin decreased to a normal level. You do not have an active acute coronary syndrome. Your EKG was reassuring Take all your medications as prescribed. You may follow-up with your primary doctor, return for new or worsening symptoms You may also follow up with Cardiology at the number provided You may benefit from a Holter monitor given your chest pain and episodes of fast heart rate Prescriptions: No Action lorazepam 0.5 mg tablet 0.5 mg PO DAILY PRN (Reason: anxiety) Qty: 3 0RF Rx Instructions: 1 tab 30 mins prior to MRI, 2nd tab prn. Do not drive while taking this medication losartan 50 mg tablet 1 tab PO BEDTIME omeprazole 40 mg capsule,delayed release(DR/EC) 1 cap PO BEDTIME glipizide 5 mg tablet 1 tab PO DAILY Victoza 3-Vinicius 0.6 mg/0.1 mL (18 mg/3 mL) pen injector 1.8 mg subcut DAILY multivitamin Tablet 1 tab PO QAM calcium citrate 200 mg (950 mg) tablet 2 tab PO BEDTIME azathioprine 100 mg tablet 100 mg PO DAILY azathioprine 50 mg tablet 50 mg PO DAILY meloxicam 15 mg tablet 15 mg PO DAILY 30 Days Qty: 30 0RF Referrals: Jose Whitman MD [Physician] - (Tachycardia) Print Language: Jordanian
--- NOTE | 2024-07-12 19:39 | PC.NURSE ---
light rail vehicle operator wheeled patient from to room 1 and immediately upon arrival the patient stated I hope you dont expect me to put that on while pointing to the gown on the bed. RN attempted to educate and advise the patient but she stated I can just lift my shirt up . Pt refusing to change into hospital attire at this time
--- NOTE | 2024-07-12 20:03 | MHC.EDTECH ---
Addendum entered by Savana Nguyen 07/12/24 20:10: BP is elevated,RN aware at bedside Original Note: Patient came in from the waiting room,pt is refusing to get undressed,conveyor line battery charger attempted as well,pt was placed on the hospital monitor vitals taken,labs drawn,and sars swab sent to lab,visitor at bedside call molina in reach
[2024-07-12 20:05] VITALS: BP 172/69; PULSE 58; RESP 18; TEMP 36.7; O2SAT 99
[2024-07-12 20:05] LABS: Eosinophils Absolute Auto 0.2 X10*3/uL (0.0-0.4); Eosinophils Percent Auto 4.1 % (0-4); Hematocrit 40.6 % (37.0-47.0); Hemoglobin 13.5 g/dl (12.0-16.0); Imm Gran Abs Auto 0.01 X10*3/uL (0.00-0.03); Imm Gran Pct Auto 0.2 % (0.0-0.4); Lymphocytes Absolute Auto 1.1 X10*3/uL (1.2-4.9); Lymphocytes Percent Auto 25.7 % (20-40); MANUAL DIFF FLAG NO; Mean Corpuscular HGB Conc 33.3 g/dl (31.0-35.0); Mean Corpuscular Volume 93.1 fL (80.0-98.0); Mean Platelet Volume 10.2 fL (9.4-12.3); Monocytes Absolute Auto 0.4 X10*3/uL (0.1-1.2); Monocytes Percent Auto 9.1 % (2-11); Neutrophils Absolute Auto 2.5 x10*3/uL (2.0-8.3); Neutrophils Percent Auto 59.9 % (45-73); Platelet Count 206 X10*3/uL (160-400); Red Blood Count 4.36 X10*6/uL (4.20-5.50); Red Cell Distribution Width 14.1 % (11.0-16.0); White Blood Count 4.2 X10*3/uL (4.8-10.8)
[2024-07-12 20:15] VITALS: PULSE 58
[2024-07-12 20:20] LABS: INTERNATIONAL NORM RATIO 0.9 (0.9-1.1); Prothrombin Time 10.4 SEC (10.9-12.4)
[2024-07-12 20:30] LABS: B Type Natriuretic Peptide 78 pg/mL (<100)
[2024-07-12 20:32] LABS: Lipase 10 U/L (8-78)
[2024-07-12 20:36] LABS: Troponin-I High Sensitivity 23.6 ng/L (<3.5-17.0)
[2024-07-12 20:42] LABS: Alanine Aminotransferase 35 U/L (0-31); Albumin Level 3.9 g/dL (3.5-5.0); Alkaline Phosphatase 83 U/L (39-117); Anion Gap 13 (12-20); Aspartate Amino Transferase 45 U/L (5-31); Bilirubin Direct 0.4 mg/dL (0.0-0.5); Bilirubin Total 1.2 mg/dL (0.0-1.0); Blood Urea Nitrogen 9 mg/dL (9-16); Calcium 9.2 mg/dL (8.4-10.2); Carbon Dioxide 25 mmol/L (22-29); Chloride 109 mmol/L (96-108); Creatinine Clr Calc Pharmacy 134.6; Estimated Glomerular Filt Rate > 60; Glucose Random 108 mg/dL (60-115); Magnesium 2.2 mg/dL (1.6-2.6); Potassium 3.8 mmol/L (3.3-5.1); Sodium 143 mmol/L (135-145); Total Protein 6.5 g/dL (6.5-8.0)
[2024-07-12 20:43] LABS: Influenza A PCR NEGATIVE (Negative); Influenza B PCR NEGATIVE (Negative); Resp Syncy Virus RNA Qual PCR NEGATIVE (Negative); SARS COV2 PCR INHOUSE NEGATIVE (Negative)
[2024-07-12 20:50] LABS: TSH reflex Free T4 1.63 uIU/mL (0.32-4.0)
[2024-07-12 22:00] VITALS: BP 147/77; PULSE 60; RESP 20; TEMP 37.1; O2SAT 99
--- NOTE | 2024-07-12 22:22 | MHC.EDTECH ---
Rounds and vitals completed,repeat lab drawn and sent to lab
[2024-07-12 22:34] LABS: Troponin-I High Sensitivity 8.3 ng/L (<3.5-17.0)
[2024-07-12 23:19] VITALS: BP 147/77; PULSE 60; RESP 20; TEMP 37.1; O2SAT 99
== END 2024-07-12 23:20 | disposition home or self-care (01) ==
PROVIDERS: Physician Assistant; Physician Assistant Medical; Emergency Provider Emergency Medicine; PCP Internal Medicine
DX: R07.89 Other chest pain (principal); R00.1 Bradycardia, unspecified; I10 Essential (primary) hypertension; E11.9 Type 2 diabetes mellitus without complications; Z98.84 Bariatric surgery status; Z79.899 Other long term (current) drug therapy; Z87.891 Personal history of nicotine dependence; Z03.818 Encounter for observation for suspected exposure to other biological agents ruled out
CPT/HCPCS: 0241U; 36415; 71046; 80048; 80076; 83690; 83735; 83880; 84443; 84484; 85025; 85610; 93005; 99283; 99285

== ENCOUNTER 2024-11-25 13:16 | Outpatient (REF) | payer OTHER, SELFPAY ==
--- OUTSIDE RECORDS SUMMARY | 2024-11-25 15:15 | XMS_ITS ---
Author Organization [facility] Care Team Providers Care Precision Farming Specialist Name Role Phone Timo Arzola Unavailable Unavailable Kay Francis Unavailable Unavailable Allergies and adverse reactions Code CodeSystem Substance Reaction Severity StartDate Concern Status 92110 RXNORM Trimethoprim Unknown 07/07/2021 active 08173 RXNORM Sulfamethoxazole Unknown 07/07/2021 acti ve 6387 RXNORM Lidocaine Unknown 07/07/2021 active 3640 RXNORM Doxycycline Unknown 07/07/2021 active 90009 RXNORM Clavulanic Acid Unknown 07/07/2021 activ e 10313 RXNORM Clarithromycin Unknown 07/07/2021 active 41065 RXNORM Azithromycin Unknown 07/07/2021 active 723 RXNORM Amoxicillin Unknown 07/07/2021 active Care Team Name Role Address Phone Organization Dates Timo Arzola PCP [address] [facility] [address], [place], [address], [place] (Office[place] : [facility] 07/07/2021 - 07/23/2021 Kay Francis Attending Physician [address] [facility] [address], [place], [address], [place] (Office): [facility] 07/07/2021 - 07/23/2021 Immunizations Immunization Status Vaccine Details Vaccine Code CodeSystem Date Notes TB 1 Step Mantoux (PPD) completed tuberculin skin test; unspecified formulation lotNumber: [id number] expiry: 12/16/2021 Mfg: PAR pharmaceical Given 0.1 ml Left Forearm subcutaneously 98 CVX created date: 07/10/2021 consent date: 07/10/2021 administere d date: 07/08/2021 Mental Status Section Date Assessment Total Score Description 07/23/2021 BIMS 15 cognitively int act CAM 0 No delirium ind icated PHQ-9 01 minimal depress ion 07/13/2021 BIMS 15 cognitively int act CAM 0 No delirium ind icated PHQ-9 01 minimal depress ion Problems Problem # Description Date of onset Resolved Date Code CodeSystem Concern Status 1 ESSENTIAL (PRIMARY) HYPERTENSION 07/08/[address] active 2 GASTRO-ESOPHAGEAL REFLUX DISEASE WITHOUT ESOPHAGITIS 07/08/[address] active 3 POLYMYOSITIS, ORGAN INVOLVEMENT UNSPECIFIED 07/08/[address] active 4 REPEATED FALLS 07/08/[address] ac tive 5 TYPE 2 DIABETES MELLITUS WITHOUT COMPLICATIONS 07/08/[address] active 6 DIFFICULTY IN WALKING, NOT ELSEWHERE CLASSIFIED 07/07/[address] active 7 DISPLACED BIMALLEOLAR FRACTURE OF LEFT LOWER LEG, SUBSEQUENT ENCOUNTER FOR CLOSED FRACTURE WITH ROUTINE HEALING 07/07/[address] active 8 DYSPHAGIA, OROPHARYNGEAL PHASE 07/07/[address] active 9 OBESITY, UNSPECIFIED 07/07/[address] active 10 OTHER ABNORMALITIES OF GAIT AND MOBILITY 07/07/[address] active 11 OTHER LACK OF COORDINATION 07/07/[address] active 12 UNSPECIFIED OSTEOARTHRITIS, UNSPECIFIED SITE 07/07/[address] active Reason for Referral No Reasons for Referral Entered Social History Social History Observation Description Start Date End Date Code Code System Current Smoking Status Tobacco smoking consumption unknown 441758785 SNOMED CT Sex Assigned At Female 1965 99347-[address] [facility] Vital Signs Code Code System Vitals Name Values and Units Timing Information 8462-[address] [facility] Blood Pressure-Diastolic Value=65 Un its=mmHg 07/23/2021 8480-6 [facility] Blood Pressure-Systolic Rofjy=000 Un its=mmHg 07/23/2021 8867-4 [facility] Heart rate Value=72.0 Units=/min 05/2021 9279-1 [facility] Respiratory Rate Value=18.0 Units=/m in 07/23/2021 8310-5 [facility] Body Temperature Value=97.9 Units=?? F 07/23/2021 01259-7 [facility]INC O2 % BldC Oximetry Value=96.0 Units= % 07/23/2021 58842-9 LOINC Pain Level Value=0.0 07/23/2021 2339-0 LOINC Blood Sugar Famia=499.0 Units=mg/dL 07/23/2021 37630-9 LOINC Weight Ngcqr=268.0 Units=Lbs 11/2020 8302-2 LOINC Height Value=65.0 Units=Inches 07/08/2021
--- OUTSIDE RECORDS SUMMARY | 2024-11-25 15:15 | XMS_ITS | Encounter Summary ---
Author Organization [facility] Address [address] [place] [address] Phone Care Team Providers Care Indian Nanny Name Role Phone Rolando Comer MD Primary Care Provider [phone] Encounter Details Date Type Department Care Team (Late st Contact Info) Description 08/19/2024 Documentation Only [facility] [place], [address] [place] [address] Anshul [place], [place] [address] [place] [address] Social History Tobacco Use Types Packs/Day Years Used Date Smoking Tobacco: Never Assessed Comments Unknown Sex and Gender Information Value Date Recorded Sex Assigned at Not on file Legal Sex Female 12:27 PM EST Gender Identity Not on file Sexual Orientation Not on file documented as of this encounter Plan of Treatment Not on file documented as of this encounter Visit Diagnoses Not on filedocumented in this encounter Care Teams Indian Nanny Relationship Specialty Start Date End Date Rolando Comer MD [facility] MICHELLE BAZAN [place] PCP - General Internal Medicine 08/19/24 documented as of this encounter
--- OUTSIDE RECORDS SUMMARY | 2024-11-25 15:15 | XMS_ITS | Data Portability ---
Author Organization ID - [facility], Allergy Address [address] [address] Care Team Providers Care Vacation Guide Name Role Phone GINA CAMPOS Referring Provider Assessment No assessment recorded. Plan of Treatment Reminders Order Date Submit Date Provider Last Modified By Organization Details Last Modified Time Details Appointments Establish ed 10 2024 01:50P M MATTIE LEBLANC MD Not available Not available Not available Lab None recorded. Referral None recorded. Procedures None recorded. Surgeries None recorded. Imaging None recorded. Medication Orders None recorded. Patient TargetsNo targets recorded. Patient InstructionsNo instructions recorded. Reason for Referral None Reported. Results Created Date Observation Date Name Description Value Unit Range Abnormal Flag Note LastModifiedBy Organization Detail LastModifiedTime 04/03/20 24 01/12/2023 imagi ng/di agnos tic resul t No observ ation record ed. [email or web address] Not Available 12:07:42 04/03/20 24 01/12/2023 imagi ng/di agnos tic resul t No observ ation record ed. [email or web address] Not Available 12:07:45 04/03/20 24 03/24/2020 imagi ng/di agnos tic resul t No observ ation record ed. [email or web address] Not Available 12:07:52 04/03/20 24 04/20/2021 imagi ng/di agnos tic resul t No observ ation record ed. [email or web address] Not Available 12:07:56 04/03/20 24 04/20/2021 imagi ng/di agnos tic resul t No observ ation record ed. [email or web address] Not Available 12:08:00 04/03/20 24 01/12/2023 audio gram No observ ation record ed. [email or web address] Not Available 12:08:06 04/03/20 24 04/20/2021 audio gram No observ ation record ed. [email or web address] Not Available 12:08:22 Result Notes None recorded. Problems Name Problem SNOMED Code Status Onset Date Resolution Date Notes Provider Name and Address Organization Details Recorded Time Epidermo id cyst of skin 117322723 Completed 201903/15/2024 Sebaceou s cyst; Note: Date Diagnose d: 0 3:55 PM (L72.3) Not Available [facility] 4 03:02:05 Marginal perforat ion of tympanic membrane 58682385 Active 2015 Other marginal perforat ions of tympanic membrane , right ear; Note: Changed from H72.91 to H72.2X1 (12/28/19 18 2:48 PM) , Date Diagnose d: 6 12:11 PM (H72.91) [mapped from ICD9 code: 384.20] Not Available [facility] 4 03:02:07 Nasal congesti on 20100905 Active 2016 Nasal congesti on; Note: Date Diagnose d: 7 2:26 PM (R09.81) Not Available [facility] 4 03:02:06 Dysfunct ion of eustachi an tube 89782808 Active 2014 Eustachi an tube dysfunct ion; Note: Date Diagnose d: 5 12:17 PM (381.81) Note: Date Diagnose d: 5 12:17 PM (381.81) Not Available [facility] 4 01:16:11 Hypertro phy of nasal turbinat es 57239546 Active 2016 Hypertro phy of nasal turbinat es; Note: Date Diagnose d: 7 2:25 PM (J34.3) Not Available [facility] 4 03:02:07 Mixed conducti ve and sensorin eural hearing loss of right ear 71080365824 105 Active 2017 Mixed conducti ve and sensorin eural hearing loss, unilater al, right ear with restrict ed hearing on the contrala teral side; Note: Date Diagnose d: 8 2:19 PM (H90.A31 ) Not Available [facility] 4 03:02:05 Sensorin eural hearing loss in left ear 81120260605 109 Active 2017 Sensorin eural hearing loss, unilater al, left ear, with restrict ed hearing on the contrala teral side; Note: Date Diagnose d: 8 2:19 PM (H90.A22 ) Not Available [facility] 4 03:02:05 Dysfunct ion of eustachi an tube 93987314 Active 2023 MATTIE LEBLANC MD [address] [place] [address], [facility] [place] [id number] , [facility] 4 07:49:34 Conducti ve hearing loss, bilatera l 578887418 Active 2015 Conducti ve hearing loss, bilatera l; Note: Date Diagnose d: 5 2:45 PM (389.06) ; Start Date : 11/07/19 15 Condu ctive hearing loss, bilatera l; Note: Date Diagnose d: 6 12:11 PM (H90.0) [mapped from ICD9 code: 389.06] Not Available [facility] 4 03:02:04 Perforat ion of tympanic membrane 63883829 Active 2014 Perforat ion of tympanic membrane , unspecif ied; Note: Date Diagnose d: 5 2:45 PM (384.20) Not Available [facility] 4 03:02:05 Bilatera l disorder of Eustachi an tubes 44295547298 11877 Active 2015 Other specifie d disorder s of Eustachi an tube, bilatera l; Note: Date Diagnose d: 6 12:11 PM (H69.83) [mapped from ICD9 code: 381.81] Not Available [facility] 4 03:02:06 Allergic rhinitis 57023919 Active 2023 Tianna jose [facility] 4 11:22:23 Problem Notes None recorded. Procedures Surgical History Date Name Laterality Status Provider Name and Address Organization Details Recorded Time cholecystectomy completed Tianna Mcdonough [facility] 02/05/2024 15:38:24 closed reduction of fracture of ankle completed Tianna Mcdonouhg [facility] 02/05/2024 15:38:31 Imaging Results Imaging Date Name Status LastModified by [facility] Details LastModified Time 01/12/2023 imaging/diagno stic result completed Information not available 04/03/2024 12:07:42 01/12/2023 imaging/diagno stic result completed Information not available 04/03/2024 12:07:45 03/24/2020 imaging/diagno stic result completed Information not available 04/03/2024 12:07:52 04/20/2021 imaging/diagno stic result completed Information not available 04/03/2024 12:07:56 04/20/2021 imaging/diagno stic result completed Information not available 04/03/2024 12:08:00 01/12/2023 audiogram completed Information not available 04/03/2024 12:08:06 04/20/2021 audiogram completed Information not available 04/03/2024 12:08:22 Procedure Notes None recorded. Medical Equipment None Reported. Allergies Allergen ID Allergen Name Allergen Category Reaction Reaction Severity Criticality Documentation Date Start Date Code Code System Note Provider Name and Address Organization Details Recorded Time 27168 Bactrim medicatio n other Not available Not available 12/26/2023 04566 9 RxNorm React ion: unkno wn, unspe cifie d;; Not Available [facility] 4 01:03:28 44868 amoxicill in / clavulana te medicatio n other Not available Not available 12/26/2023 24660 RxNorm React ion: unkno wn, unspe cifie d;; Not Available [facility] 4 01:03:29 25450 clarithro mycin medicatio n other Not available Not available 12/26/2023 14140 RxNorm React ion: unkno wn, unspe cifie d;; Not Available [facility] 4 01:03:30 59038 doxycycli ne hyclate medicatio n other Not available Not available 12/26/2023 17198 RxNorm React ion: unkno wn, unspe cifie d;; Not Available [facility] 4 01:03:31 09657 azithromy douglas medicatio n other Not available Not available 12/26/2023 05027 RxNorm React ion: unkno wn, unspe cifie d;; Not Available [facility] 4 01:03:35 Medications Name Sig Start Date Stop Date Status Note LastModified by Organization Details LastModified Time advocate pen ndl 5mm 31g active Not Available Not Available Not Available freestyle lite test strip active Not Available Not Available Not Available calcium citrate 950 (200 ca 02/04 completed Not Available Not Available Not Available carvedilo l 12.5 mg tablet active Not Available Not Available Not Available trazodone 50 mg tablet active Not Available Not Available Not Available meloxicam 15 mg tablet TAKE 1 TABLET DAILY active Not Available Not Available No t Available hydroquin one 4 % topical cream active Not Available Not Available Not Available lisinopri l 20 mg tablet 01/12 completed Medicati on ID: [id number] Du ration Value: 30 Brand Name: lisinopr il Send Method: E-Prescr ibed Sub s Allowed: subs OK Medic ationGen ericName : lisinopr il Not Available Not Available Not Available glipizide 10 mg tablet TAKE 1 TABLET DAILY active Not Available Not Available No t Available valsartan 80 mg tablet active Not Available Not Available Not Available topiramat e 25 mg tablet 12/27 completed Medicati on ID: [id number] D uration Value: 30 Reason: () Brand Name: topirama te Send Method: E-Prescr ibed Sub s Allowed: subs OK Medic ationGen ericName : topirama te Not Available Not Available Not Available azathiopr ine 50 mg tablet active Medicati on ID: [id number] B rand Name: azathiop rine Sen d Method: E-Prescr ibed Sub s Allowed: subs OK Medic ationGen ericName : azathiop rine Not Available Not Available Not Available omeprazol e 40 mg capsule,d elayed release TAKE 1 CAPSULE DAILY active Not Available Not Available No t Available mycopheno late mofetil 500 mg tablet 04/20 completed Medicati on ID: [id number] D uration Value: 30 Brand Name: mycophen olate mofetil Send Method: E-Prescr ibed Sub s Allowed: subs OK Medic ationGen ericName : mycophen olate mofetil Not Available Not Available Not Available valsartan 320 mg tablet TAKE 1 TABLET DAILY active Not Available Not Available No t Available mometason e 50 mcg/actua tion nasal spray Take 2 sprays every day by nasal route for 30 days. active Not Available Not Available No t Available alcohol swabs active Not Available Not Available Not Available losartan 50 mg-hydroc hlorothia zide 12.5 mg tablet active Not Available Not Available No t Available pioglitaz one 30 mg tablet active Not Available Not Available Not Available losartan 100 mg tablet 02/04 completed Medicati on ID: [id number] B rand Name: losartan Send Method: E-Prescr ibed Sub s Allowed: subs OK Medic ationGen ericName : losartan Medicat ion ID: [id number] B rand Name: losartan Send Method: E-Prescr ibed Sub s Allowed: subs OK Medic ationGen ericName : losartan Not Available Not Available Not Available fluticaso ne propionat e 50 mcg/actua tion nasal spray,lilo pension Prim 2 sprays every day by intranas al route for 90 days. 2024 active Not Available Not Available Not Avai lable glipizide 5 mg tablet 02/04 completed Not Available Not Available Not Available valsartan 160 mg tablet active Not Available Not Available Not Available calcium 200 mg (as calcium citrate 950 mg) tablet TAKE 1 TABLET TWICE A DAY active Not Available Not Available No t Available quinine 324 mg capsule 01/12 completed Medicati on ID: [id number] B rand Name: quinine sulfate Send Method: E-Prescr ibed Sub s Allowed: subs OK Medic ationGen ericName : quinine sulfate Not Available Not Available Not Available losartan 100 mg-hydroc hlorothia zide 12.5 mg tablet 02/04 completed Not Available Not Available Not Available FreeStyle Lite Strips active Not Available Not Available Not Available Lantus Solostar U-100 Insulin 100 unit/mL (3 mL) subcutane ous pen 03/05 completed Medicati on ID: [id number] Du ration Value: 30 Brand Name: Lantus Solostar U-100 Insulin Send Method: E-Prescr ibed Sub s Allowed: subs OK Medic ationGen ericName : Lantus Solostar U-100 Insulin Not Available Not Available Not Available Myrbetriq 25 mg tablet,ex tended release TAKE 1 TABLET DAILY active Not Available Not Available No t Available Victoza 2-Vinicius 0.6 mg/0.1 mL (18 mg/3 mL) subcutane ous pen injector INJECT 1.8MG SUBCUTAN EOUSLY DAILY DIRECTED active Not Available Not Available No t Available Farxiga 10 mg tablet TAKE 1 TABLET DAILY active Not Available Not Available No t Available Farxiga 5 mg tablet 02/04 completed Medicati on ID: [id number] B rand Name: Farxiga Send Method: E-Prescr ibed Sub s Allowed: subs OK Medic ationGen ericName : Farxiga Medicati on ID: [id number] B rand Name: Farxiga Send Method: E-Prescr ibed Sub s Allowed: subs OK Medic ationGen ericName : Farxiga Not Available Not Available Not Available UltiCare Pen Needle 31 gauge x 3/16 active Not Available Not Available Not Available Ozempic 0.25 mg or 0.5 mg (2 mg/3 mL) subcutane ous pen injector INJECT 0.5MG SUBCUTAN EOUSLYON CE WEEKLY. ROTATE INJECTIO N SITES active Not Available Not Available No t Available Vitals None Recorded Social History None recorded. Functional Status None recorded. Mental Status None recorded. Family History Nothing Reported. Medical History Condition Response Diabetes Y Hypertension Y Gynecological HistoryNo gynecological history recorded. Obstetrics History GPAL:G 0 P 0 0 0 0 Past Encounters Encounter ID Performer Location Encounter Start Date Encounter Closed Date Diagnosis/Indication Diagnosis SNOMED-CT Code Diagnosis ICD10 Code Diagnosis Note [id number] MATTIE LEBLANC MD [facility] on [address] [place] [address] 02/05/2024 15:31:27 02/05/2024 15:56:58 Marginal perforation of tympanic membrane 96185537 H72.2X1 Right tympanic membrane perforatio n appears stable. We discussed once again that this is therapeuti c rather than pathologic in light of her underlying eustachian tube dysfunctio n Dysfunctio n of eustachian tube 92243552 H69.91 Hypertroph y of nasal turbinates 15702719 J34.3 Nasal congestion well-contr olled on daily use of Flonase. We will refill prescripti ons as necessary. Mixed cond uctive and sensorineural hearing loss of right ear 2462912231 9105 H90.A31 Patient does not really use her right-side d hearing aid much. Since her insurance changed to Medicaid [facility], they will no longer service the device. I recommende d she contact Medicaid [employer] to get her in contact with the hearing aid repairer today contract with to get hearing aid leia e. Sensorineu ral hearing loss in left ear [phone] 9109 H90.A22 Health Concerns Section Related Observation LastModified by Organization Detai ls LastModified Time None Recorded Concern Status LastModified by Organization Details LastModified Time None Recorded Advance Directives Directive None Recorded Payers Encounter Date Sequence Insurance Name Policy Number Policy Holliday Covered Member ID Holliday Member ID Guarantor Name 02/05/2024 1 [facility] - DOS ON OR AFTER 2022 - MEDICARE [place]VANTAGE [place] (MEDICARE REPLACEMENT/ADV ANTAGE - PPO) Nallely Jean-Baptiste [id number] Nallely Jean-Baptiste 02/05/2024 2 MEDICAID-ID: [facility] Nallely Jean-Baptiste [id number] Nallely Jean-Baptiste Notes Date Note Type Note Provider Name and Address Organization Details Recorded Time 02/05/2024 text/html 58 year old fema le with a history of bilateral eustachian tube dysfunction and a retirement right therapeutic TM perforation presents for reevaluation and monitoring for signs of epithelial ingrowth. Patient last seen back in January 2023. Wearing AD hearing aid dispensed through [facility]. At a previous visit, she was also noted to have a small sebaceous cyst within the lobule of the right ear adjacent to a piercing which appeared to have disappeared when she was last seen back in January 2023.Patient also has chronic nasal congestion and turbinate hypertrophy and gets fluticasone prescription through our office. MATTIE LEBLANC MD [address] [place] [address], [phone], [facility] - [facility] 02/05/2024 15:57:21 OBGyn Episode No OBEpisode recorded.
--- OUTSIDE RECORDS SUMMARY | 2024-11-25 15:15 | XMS_ITS | Encounter Summary ---
Author Organization [facility] Address [address] [place] [address] Phone Care Team Providers Care Mixed Livestock Farmer Name Role Phone Rolando Comer MD Primary Care Provider [phone] Encounter Details Date Type Department Care Team (Late st Contact Info) Description 08/23/2024 Documentation Only [facility] [place], [address] [place] [address] Anshul [place], [place] [address] [place] [address] Social History Tobacco Use Types [...] on filedocumented in this encounter Care Teams Mixed Livestock Farmer Relationship Specialty Start Date End Date Rolando Comer MD [facility] MICHELLE BAZAN [place] PCP - General Internal Medicine 08/19/24 documented as of this encounter
--- OUTSIDE RECORDS SUMMARY | 2024-11-25 15:15 | XMS_ITS | Clinical Summary ---
Author Organization [facility], Address [address] [place] [address] Phone Care Team Providers Care Claims Customer Service Representative Name Role Phone Rolando Comer MD Primary Care Provider [phone] Social History Tobacco Use Types Packs/Day Years Used Date Smoking Tobacco: Never Assessed Comments Unknown Sex and Gender Information Value Date Recorded Sex Assigned at Not on file Legal Sex Female 12:27 PM EST Gender Identity Not on file Sexual Orientation Not on file Plan of Treatment Health Maintenance Due Date Last Done Comments Breast Cancer Screening 1965 Colorectal Cancer Screening: Annual FOBT 2012 Colorectal Cancer Screening: Colonoscopy 2012 Colorectal Cancer Screening: Sigmoidoscopy 2012 Diabetes: Hemoglobin A1C 08/20/2024 Diabetes: Ophthalmology Exam 08/20/2024 Diabetes: Pedal Pulse Checked 08/20/2024 Diabetes: Sensory Foot Exam 08/20/2024 Diabetes: Visual Foot Exam 08/20/2024 Pneumococcal Vaccine: Peds (0 to 5 Years) and At-Risk Patients (6 to 49 Years) Aged Out 07/14/2002 No longer eligi ble based on patient's age to complete this topic Hepatitis B Vaccine Aged Out 11/08/2016, 06/07/2016, 05/10/2016 No longer eligible based on patient's age to complete this topic Influenza Vaccine Completed 07/03/2024, , 06/01/2021, Additional history exists Insurance [employer] Dual SNP ([id number]) [place] [id number] Care Teams Claims Customer Service Representative Relationship Specialty Start Date End Date Rolando Comer MD [facility] MICHELLE BAZAN [place] PCP - General Internal Medicine 08/19/24
== END 2024-11-25 13:17 | disposition home or self-care (01) ==
LOC: HO.MAMMO 13:16
PROVIDERS: PCP Internal Medicine; Visit Provider Internal Medicine
DX: Z12.31 Encounter for screening mammogram for malignant neoplasm of breast (principal)
CPT/HCPCS: 77063; 77067

== ENCOUNTER → 2024-11-25 13:30 | Outpatient (BNV) | payer OTHER, SELFPAY | PROVIDERS: PCP Internal Medicine; Visit Provider Internal Medicine | DX: Z12.31 Encounter for screening mammogram for malignant neoplasm of breast (principal) | CPT/HCPCS: 77063; 77067 ==

== ENCOUNTER → 2025-01-15 13:00 | Outpatient (BNV) | payer OTHER, SELFPAY | PROVIDERS: PCP Internal Medicine; Visit Provider Internal Medicine | DX: N64.89 Other specified disorders of breast (principal) | CPT/HCPCS: 77065; G0279 ==

== ENCOUNTER 2025-01-15 13:02 | Outpatient (REF) | payer OTHER, SELFPAY ==
--- NOTE | ~2025-01-15 | MM_ITS ---
EXAMINATION: MM DIAGNOSTIC DIGITAL BREAST TOMOSYNTHESIS, LEFT CLINICAL INFORMATION: Call back from screening for asymmetry in the inferior left breast on MLO view. Patient has had patient had reduction mammoplasty procedures in the lower left breast.. COMPARISON: Mammography: [facility] on PACS. TECHNIQUE: Digital breast tomosynthesis is performed in both the craniocaudal and mediolateral oblique views along with computer-aided detection (CAD). Synthesized 2D images are generated from the tomosynthesis. FINDINGS: There are scattered areas of fibroglandular density (ACR BI-RADS breast composition Category b). The previously seen asymmetry in the inferior left breast on MLO view does not persist on additional imaging projections and likely represented overlapping breast tissue. There are no significant masses, abnormal calcifications, or other abnormalities. MM/MM tomosynthesis added views L IMPRESSION: No mammographic evidence of malignancy. ASSESSMENT: BI-RADS BI-RADS 1 - Negative RECOMMENDATION: 1 year F/U Results were provided to the patient at time of visit by the technologist. This patient's information was entered into a reminder system with a target due date for their next mammogram. Electronically signed by: Jenna Saleh DO 01/16/2025 10:56 AM EDT
== END 2025-01-15 13:03 | disposition home or self-care (01) ==
LOC: HO.MAMMO 13:02
PROVIDERS: PCP Internal Medicine; Visit Provider Internal Medicine
DX: R92.8 Other abnormal and inconclusive findings on diagnostic imaging of breast (principal)
CPT/HCPCS: 77061; 77065